=== PATIENT | male | born 1975 | race Caucasian/White ===

== ENCOUNTER 2020-02-26 08:06 | Outpatient (REF) | payer BC, SELFPAY ==
[2020-02-26 11:59] LABS: Alanine Aminotransferase 43 U/L (0-40); Albumin Level 4.5 g/dL (3.5-5.0); Alkaline Phosphatase 78 U/L (39-117); Anion Gap 13 (12-20); Aspartate Amino Transferase 34 U/L (5-37); Bilirubin Total 0.6 mg/dL (0.0-1.0); Blood Urea Nitrogen 24 mg/dL (9-16); Calcium 9.4 mg/dL (8.4-10.2); Carbon Dioxide 28 mmol/L (22-29); Chloride 104 mmol/L (96-108); Cholesterol 158 mg/dL; Estimated Glomerular Filt Rate > 60; Glucose Fasting 167 mg/dL (60-99); HDL Cholesterol 56 mg/dL; LDL Cholesterol Calculated 94 mg/dl; Potassium 4.5 mmol/l (3.3-5.1); Sodium 140 mmol/L (135-145); Total Protein 7.7 g/dL (6.5-8.0); Triglycerides 42 mg/dL
[2020-02-26 12:57] LABS: Creatinine Urine 155.22 mg/dL; Microalbum/Creatinine Ratio Ur 52.8 ug/mg cr
[2020-02-26 13:15] LABS: Estimated Average Glucose 171 mg/dL; Hemoglobin A1c % 7.6 %
== END 2020-02-26 08:07 | disposition home or self-care (01) ==
LOC: HO.MANLDS 08:06
PROVIDERS: PCP Internal Medicine; Visit Provider Internal Medicine
DX: E11.9 Type 2 diabetes mellitus without complications (principal)
CPT/HCPCS: 80053; 80061; 82043; 83036

== ENCOUNTER 2020-06-30 16:09 | Outpatient (REF) | payer BC, SELFPAY ==
[2020-06-30 18:08] LABS: Estimated Average Glucose 183 mg/dL
== END 2020-06-30 16:10 | disposition home or self-care (01) ==
LOC: HO.MANLR 16:09
PROVIDERS: PCP Internal Medicine; Visit Provider Internal Medicine
DX: E11.9 Type 2 diabetes mellitus without complications (principal)
CPT/HCPCS: 36415; 83036

== ENCOUNTER 2020-09-01 07:49 | Outpatient (REF) | payer BC, SELFPAY ==
[2020-09-01 12:18] LABS: Alanine Aminotransferase 28 U/L (0-40); Albumin Level 4.5 g/dL (3.5-5.0); Alkaline Phosphatase 73 U/L (39-117); Anion Gap 13 (12-20); Aspartate Amino Transferase 21 U/L (5-37); Bilirubin Total 0.6 mg/dL (0.0-1.0); Blood Urea Nitrogen 21 mg/dL (9-16); Calcium 9.8 mg/dL (8.4-10.2); Carbon Dioxide 30 mmol/L (22-29); Chloride 103 mmol/L (96-108); Cholesterol 150 mg/dL; Estimated Glomerular Filt Rate > 60; Glucose Fasting 107 mg/dL (60-99); HDL Cholesterol 57 mg/dL; LDL Cholesterol Calculated 84 mg/dl; Potassium 4.3 mmol/L (3.3-5.1); Sodium 142 mmol/L (135-145); Total Protein 7.5 g/dL (6.5-8.0); Triglycerides 46 mg/dL
[2020-09-01 12:43] LABS: Creatinine Urine 136.79 mg/dL; Microalbum/Creatinine Ratio Ur 16.8 ug/mg cr
[2020-09-01 12:57] LABS: Estimated Average Glucose 143 mg/dL; Hemoglobin A1c % 6.6 %
== END 2020-09-01 07:50 | disposition home or self-care (01) ==
LOC: HO.MANLDS 07:49
PROVIDERS: PCP Internal Medicine; Visit Provider Internal Medicine
DX: E11.9 Type 2 diabetes mellitus without complications (principal)
CPT/HCPCS: 36415; 80053; 80061; 82043; 83036

== ENCOUNTER 2020-12-24 14:21 | Outpatient (REF) | payer BC, SELFPAY ==
[2020-12-24 18:18] LABS: Estimated Average Glucose 140 mg/dL; Hemoglobin A1c % 6.5 %
== END 2020-12-24 14:22 | disposition home or self-care (01) ==
LOC: HO.MANLDS 14:21
PROVIDERS: PCP Internal Medicine; Visit Provider Internal Medicine
DX: E11.9 Type 2 diabetes mellitus without complications (principal)
CPT/HCPCS: 36415; 83036

== ENCOUNTER 2021-03-24 09:02 | Outpatient (REF) | payer BC, SELFPAY ==
[2021-03-24 11:16] LABS: Estimated Average Glucose 146 mg/dL; Hemoglobin A1c % 6.7 %
== END 2021-03-24 09:03 | disposition home or self-care (01) ==
LOC: HO.MANLDS 09:02
PROVIDERS: PCP Internal Medicine; Visit Provider Internal Medicine
DX: E11.9 Type 2 diabetes mellitus without complications (principal)
CPT/HCPCS: 36415; 83036

== ENCOUNTER 2021-06-19 08:03 | Outpatient (REF) | payer BC, SELFPAY ==
[2021-06-19 11:25] LABS: Alanine Aminotransferase 41 U/L (0-40); Albumin Level 4.6 g/dL (3.5-5.0); Alkaline Phosphatase 80 U/L (39-117); Anion Gap 12 (12-20); Aspartate Amino Transferase 29 U/L (5-37); Bilirubin Total 0.8 mg/dL (0.0-1.0); Blood Urea Nitrogen 24 mg/dL (9-16); Calcium 9.9 mg/dL (8.4-10.2); Carbon Dioxide 29 mmol/L (22-29); Chloride 101 mmol/L (96-108); Cholesterol 172 mg/dL; Estimated Glomerular Filt Rate > 60; Glucose Fasting 194 mg/dL (60-99); HDL Cholesterol 62 mg/dL; LDL Cholesterol Calculated 97 mg/dl; Potassium 4.4 mmol/L (3.3-5.1); Sodium 138 mmol/L (135-145); Total Protein 7.8 g/dL (6.5-8.0); Triglycerides 65 mg/dL
[2021-06-19 11:27] LABS: Estimated Average Glucose 192 mg/dL; Hemoglobin A1c % 8.3 %
[2021-06-19 11:29] LABS: Creatinine Urine 116.03 mg/dL; Microalbum/Creatinine Ratio Ur 78.4 ug/mg cr
== END 2021-06-19 08:04 | disposition home or self-care (01) ==
LOC: HO.MANLDS 08:03
PROVIDERS: PCP Internal Medicine; Visit Provider Internal Medicine
DX: E11.9 Type 2 diabetes mellitus without complications (principal)
CPT/HCPCS: 36415; 80053; 80061; 82043; 83036

== ENCOUNTER 2021-10-12 11:32 | Outpatient (REF) | payer BC, SELFPAY ==
[2021-10-12 14:52] LABS: Alanine Aminotransferase 41 U/L (0-40); Albumin Level 4.6 g/dL (3.5-5.0); Alkaline Phosphatase 94 U/L (39-117); Anion Gap 14 (12-20); Aspartate Amino Transferase 31 U/L (5-37); Bilirubin Total 0.6 mg/dL (0.0-1.0); Blood Urea Nitrogen 18 mg/dL (9-16); Calcium 9.7 mg/dL (8.4-10.2); Carbon Dioxide 28 mmol/L (22-29); Chloride 101 mmol/L (96-108); Cholesterol 161 mg/dL; Estimated Glomerular Filt Rate > 60; Glucose Random 209 mg/dL (60-115); HDL Cholesterol 64 mg/dL; LDL Cholesterol Calculated 81 mg/dl; Potassium 4.4 mmol/L (3.3-5.1); Sodium 139 mmol/L (135-145); Total Protein 7.9 g/dL (6.5-8.0); Triglycerides 81 mg/dL
== END 2021-10-12 11:33 | disposition home or self-care (01) ==
LOC: HO.MANLDS 11:32
PROVIDERS: Visit Provider Internal Medicine
DX: E11.9 Type 2 diabetes mellitus without complications (principal)
CPT/HCPCS: 36415; 80053; 80061

== ENCOUNTER 2021-12-15 12:15 | Outpatient (REF) | payer BC, SELFPAY ==
[2021-12-15 14:31] LABS: Estimated Average Glucose 217 mg/dL; Hemoglobin A1c % 9.2 %
[2021-12-15 14:54] LABS: Alanine Aminotransferase 59 U/L (0-40); Albumin Level 4.6 g/dL (3.5-5.0); Alkaline Phosphatase 87 U/L (39-117); Anion Gap 18 (12-20); Aspartate Amino Transferase 42 U/L (5-37); Bilirubin Total 0.8 mg/dL (0.0-1.0); Blood Urea Nitrogen 16 mg/dL (9-16); Calcium 10.1 mg/dL (8.4-10.2); Carbon Dioxide 28 mmol/L (22-29); Chloride 101 mmol/L (96-108); Estimated Glomerular Filt Rate > 60; Glucose Random 190 mg/dL (60-115); Potassium 4.7 mmol/L (3.3-5.1); Sodium 142 mmol/L (135-145); Total Protein 7.7 g/dL (6.5-8.0)
== END 2021-12-15 12:16 | disposition home or self-care (01) ==
LOC: HO.MANLDS 12:15
PROVIDERS: Visit Provider Internal Medicine
DX: E11.9 Type 2 diabetes mellitus without complications (principal)
CPT/HCPCS: 36415; 80053; 83036

== ENCOUNTER 2022-05-15 08:00 | Outpatient (REF) | payer BC, SELFPAY ==
[2022-05-15 08:51] LABS: Estimated Average Glucose 263 mg/dL; Hemoglobin A1c % 10.8 %
[2022-05-15 08:52] LABS: Alanine Aminotransferase 52 U/L (0-40); Albumin Level 4.3 g/dL (3.5-5.0); Alkaline Phosphatase 134 U/L (39-117); Anion Gap 11 (12-20); Aspartate Amino Transferase 33 U/L (5-37); Bilirubin Total 0.7 mg/dL (0.0-1.0); Blood Urea Nitrogen 14 mg/dL (9-16); Calcium 9.5 mg/dL (8.4-10.2); Carbon Dioxide 27 mmol/L (22-29); Chloride 103 mmol/L (96-108); Cholesterol 162 mg/dL; Estimated Glomerular Filt Rate > 60; Glucose Random 329 mg/dL (60-115); HDL Cholesterol 50 mg/dL; LDL Cholesterol Calculated 97 mg/dl; Potassium 4.1 mmol/L (3.3-5.1); Sodium 137 mmol/L (135-145); Total Protein 7.3 g/dL (6.5-8.0); Triglycerides 78 mg/dL
[2022-05-15 09:42] LABS: Microalbum/Creatinine Ratio Ur 93.4 ug/mg cr
== END 2022-05-15 08:01 | disposition home or self-care (01) ==
LOC: HO.LAB 08:00
PROVIDERS: PCP Internal Medicine; Visit Provider Internal Medicine
DX: E11.9 Type 2 diabetes mellitus without complications (principal)
CPT/HCPCS: 36415; 80053; 80061; 82043; 83036

== ENCOUNTER 2022-10-12 08:30 | Outpatient (REF) | payer BC, SELFPAY ==
[2022-10-12 11:41] LABS: Estimated Average Glucose 157 mg/dL; Hemoglobin A1c % 7.1 %
== END 2022-10-12 08:31 | disposition home or self-care (01) ==
LOC: HO.MANLDS 08:30
PROVIDERS: Visit Provider Internal Medicine
DX: E11.9 Type 2 diabetes mellitus without complications (principal)
CPT/HCPCS: 36415; 83036

== ENCOUNTER 2022-12-28 13:40 | Outpatient (REF) | payer OTHER, SELFPAY ==
[2022-12-28 14:30] LABS: Alanine Aminotransferase 34 U/L (0-40); Albumin Level 4.7 g/dL (3.5-5.0); Alkaline Phosphatase 79 U/L (39-117); Aspartate Amino Transferase 26 U/L (5-37); Bilirubin Direct 0.4 mg/dL (0.0-0.5); Bilirubin Total 0.9 mg/dL (0.0-1.0); Total Protein 8.2 g/dL (6.5-8.0)
== END 2022-12-28 13:41 | disposition home or self-care (01) ==
LOC: HO.LAB 13:40
PROVIDERS: PCP Internal Medicine; Visit Provider Internal Medicine
DX: R79.89 Other specified abnormal findings of blood chemistry (principal)
CPT/HCPCS: 36415; 80076

== ENCOUNTER 2023-01-12 08:24 | Outpatient (REF) | payer OTHER, BC, SELFPAY ==
--- NOTE | ~2023-01-12 | US_ITS ---
EXAMINATION: US ABDOMEN COMPLETE CLINICAL INFORMATION: Elevated LFTs. COMPARISON: None available. TECHNIQUE: Real-time imaging of the abdominal viscera. Technically limited study secondary to body habitus. FINDINGS: PANCREAS: Visualized portions of the pancreas are unremarkable. The pancreatic tail is obscured by bowel gas. ABDOMINAL AORTA: The proximal, mid, and distal segments are normal in caliber. INFERIOR VENA CAVA: Visualized IVC is normal in caliber however portions are obscured by bowel gas. LIVER: Technically limited exam and the left lobe of the liver was not seen due to body habitus. The liver contour is normal. Increased hepatic echogenicity which can be seen in the setting of hepatic steatosis or underlying liver disease. No focal hepatic lesion. There is no intrahepatic biliary duct dilatation seen. GALLBLADDER: Normal. The gallbladder is physiologically distended without evidence of stones, sludge, polyps, wall thickening or pericholecystic fluid. COMMON BILE DUCT: Not identified sonographically. RIGHT KIDNEY: Normal. No hydronephrosis. No renal calculi or focal parenchymal lesions. The kidney measures 12.5 cm in maximum dimension. LEFT KIDNEY: Normal. No hydronephrosis. No renal calculi or focal parenchymal lesions. The kidney measures 12.0 cm in maximum dimension. SPLEEN: Normal. The spleen measures 12.2 cm in maximum dimension. FREE FLUID: None. US/US abdomen complete IMPRESSION: 1. Technically limited exam and the left lobe of the liver was not seen. Increased hepatic echogenicity which can be seen in the setting of hepatic steatosis or underlying liver disease. 2. Common bile duct and portions of the IVC were obscured by bowel gas.
== END 2023-01-12 08:25 | disposition home or self-care (01) ==
LOC: HO.US 08:24
PROVIDERS: PCP Internal Medicine; Visit Provider Internal Medicine
DX: R79.89 Other specified abnormal findings of blood chemistry (principal)
CPT/HCPCS: 76700

== ENCOUNTER 2023-02-07 08:09 | Outpatient (REF) | payer BC, SELFPAY ==
[2023-02-07 14:04] LABS: Estimated Average Glucose 160 mg/dL; Hemoglobin A1c % 7.2 % (<6.0)
== END 2023-02-07 08:10 | disposition home or self-care (01) ==
LOC: HO.MANLDS 08:09
PROVIDERS: Visit Provider Internal Medicine
DX: E11.9 Type 2 diabetes mellitus without complications (principal)
CPT/HCPCS: 36415; 83036

== ENCOUNTER 2023-04-01 09:29 | Day surgery (SDC) | payer BC, SELFPAY ==
[2023-03-30 16:33] VITALS: BMI 29.3
--- NOTE | 2023-03-31 10:35 | HO.ANESPROP2 ---
Documented by User: Georgia Fletcher NP 03/31/23 10:37 HPI - Anesthesia Eval Consult details Narrative: 47yo M for Colonoscopy Anesthesia Pre-Procedure Meds Is the patient on any of the following meds?: Any other SGL-1 drugs or drugs that delay gastric emptying (Tirzepatide) PMFSH Past Medical History Medical History Elevated cholesterol Elevated liver enzymes Glaucoma Diabetes Surgical History Surgical History History of back surgery Social History Social History Patient Tobacco Use Status: Never used Tobacco Use of substances other than those prescribed or required for medical reasons: No Are you DNR?: No Advance Directives: No Advance Directives Information Provided: Yes Meds Allergies Allergy/AdvReac Type Severity Reaction Status Date / Time No Known Allergies Allergy Verified 04/01/23 10:49 Home Medications Medication Instructions Recorded Confirmed Last Taken Type atorvastatin 20 mg tablet 20 mg PO DAILY 03/30/23 04/01/23 Unknown History empagliflozin 10 mg tablet 10 mg PO DAILY 03/30/23 04/01/23 03/30/23 History (Jardiance) latanoprost 0.005 % eye drops 1 drp ophthalmic (eye) BEDTIME 03/30/23 04/01/23 Unknown History metformin 1,000 mg tablet 1,000 mg PO BID 03/30/23 04/01/23 03/30/23 History tirzepatide 5 mg/0.5 mL 5 mg subcut QWEEK 03/30/23 04/01/23 03/25/23 History subcutaneous pen injector (Mounjaro) Exam Height,Weight and Vital Signs: Height 5 ft 8 in Weight 87.543 kg Assessment and Plan Assessment Anesthesia Assessment: Chart Reviewed Documented by User: Elda Brice MD 04/01/23 12:13 HPI - Anesthesia Eval Anesthesia Pre-Procedure Meds If Yes to any meds - educate patient: Pt education - increased risk of aspiration PMFSH Past Medical History Medical History Elevated cholesterol Elevated liver enzymes Glaucoma Diabetes Family History Family history of problems with anesthesia: No Surgical History Surgical History History of back surgery History of Problems with Anesthesia: No Social History Social History Patient Tobacco Use Status: Never used Tobacco Use of substances other than those prescribed or required for medical reasons: No Are you DNR?: No Advance Directives: No Advance Directives Information Provided: Yes Meds Allergies Allergy/AdvReac Type Severity Reaction Status Date / Time No Known Allergies Allergy Verified 04/01/23 10:49 Home Medications Medication Instructions Recorded Confirmed Last Taken Type atorvastatin 20 mg tablet 20 mg PO DAILY 03/30/23 04/01/23 Unknown History empagliflozin 10 mg tablet 10 mg PO DAILY 03/30/23 04/01/23 03/30/23 History (Jardiance) latanoprost 0.005 % eye drops 1 drp ophthalmic (eye) BEDTIME 03/30/23 04/01/23 Unknown History metformin 1,000 mg tablet 1,000 mg PO BID 03/30/23 04/01/23 03/30/23 History tirzepatide 5 mg/0.5 mL 5 mg subcut QWEEK 03/30/23 04/01/23 03/25/23 History subcutaneous pen injector (Mounjaro) Exam Height,Weight and Vital Signs: Height 5 ft 8 in Weight 87.543 kg Vital Signs Temp Pulse Resp BP Pulse Ox O2 Del Method 04/01/23 10:50 98.3 F 106 H 16 146/96 H 100 Room Air Pertinent Lab Results Pertinent Lab Results: Lab Results 04/01/23 Range/Units 10:57 POC Glucose 137 H (60-115) mg/dL Airway Mallampati Class: III TM Dist: >3cm Neck ROM: Full Loose/Missing/Broken Teeth: No (Denies broken, loose, missing teeth) Heart: RRR Lungs: CTAB Assessment and Plan Assessment Anesthesia Assessment: Anesthesia Plan Discussed Final Anesthetic Review Family History of Problems with Anesthesia: No History of Problems with Anesthesia: No NPO: Yes ASA Class: II Final Preanesthetic Review: No Changes in Pt Med Stat, Meds/Allgs Chart Reviewed, Consent Obtained/Reviewed and Anes Risks/Benef Reviewed Patient Risk: Low Procedure Risk: Low Assessment/Block/Sedation in SS: Assess/Block/Sedation-SS Anesthetic Plan Anesthetic Plan: MAC: Disposition: Standard PACU
[2023-04-01 10:50] VITALS: BP 146/96; PULSE 106; RESP 16; TEMP 36.8; O2SAT 100
[2023-04-01 10:54] VITALS: BMI 28.6
[2023-04-01] MEDS: Sodium Phosphate,Mono-Dibasic 133 ML ENEMA PR (11:05)
[2023-04-01 11:08] LABS: Glucose, Whole Blood 137 mg/dL (60-115)
[2023-04-01] MEDS: Lactated Ringers 1,000 ML 100 ML IVCONT (11:46)
[2023-04-01 12:42] VITALS: BP 105/58; PULSE 105; RESP 16; TEMP 36.1; O2SAT 97
--- NOTE | 2023-04-01 12:43 | PM.OP ---
Brief Operative Note Date of Service: 04/01/23 Pre-op diagnosis: Screening Post-op diagnosis: other (Diverticulosis) Procedure: Colonoscopy to the cecum and TI Surgeon: Francis Meadows MD Anesthesia: MAC Was an Charge Accounts Audit Clerk used for this Procedure?: No Estimated blood loss (mL): 0 Pathology: none sent Condition: stable Disposition: PACU
[2023-04-01 13:03] VITALS: BP 113/58; PULSE 108; RESP 17; TEMP 36.1; O2SAT 97
--- NOTE | 2023-04-01 19:38 | OP_ITS ---
DATE OF SERVICE: 04/01/2023 SURGEON: Francis Meadows MD INDICATIONS: The patient presents for evaluation of colorectal cancer screening and family history of colon cancer. Full consent has been obtained from him for this, including risks of bleeding and perforation. PREOPERATIVE DIAGNOSIS: Colorectal cancer screening and family history of colon cancer. POSTOPERATIVE DIAGNOSIS: PROCEDURE PERFORMED: Colonoscopy to the cecum and terminal ileum. ESTIMATED BLOOD LOSS: COMPLICATIONS: ANESTHESIA: Monitored anesthesia care. ASSISTANTS: SPECIMENS: POSTOPERATIVE DIAGNOSES: Colorectal cancer screening and family history of colon cancer, mild sigmoid diverticulosis, small internal hemorrhoids. DESCRIPTION OF PROCEDURE: The patient was placed in the left lateral decubitus position. The digital rectal exam revealed no abnormalities. The Olympus video pediatric colonoscope was entered into the rectum and advanced easily to the cecum. Once in the cecum, I did identify normal-appearing cecal pouch with appendiceal orifice and a normal-appearing ileocecal valve. The terminal ileum was cannulated and appeared normal. The scope was withdrawn back in the colon. The entire cecum and ileocecal valve appeared normal. The scope was slowly withdrawn assessing all mucosal surfaces carefully. Preparation was excellent. I did not visualize any sign of polyps, colitis, nor angiodysplasia. There was an occasional diverticulum noted in the sigmoid colon. In the rectum, scope was retroflexed visualizing internal hemorrhoids, but no other pathology. The rectal mucosa appeared normal. The scope was straightened and withdrawn from the patient. He tolerated the procedure well and was returned to the recovery area in stable condition. IMPRESSION: 1. Occasional sigmoid diverticulosis. 2. Small internal hemorrhoids. PLAN: Given his family history of a grandmother having had colon cancer in her 50s, I would recommend a repeat colonoscopy in 5 years for further screening. He will otherwise see me on a p.r.n. basis. MD NIKKI Zeng/RONIT / [id number]
== END 2023-04-01 13:30 | disposition home or self-care (01) ==
PROVIDERS: PCP Internal Medicine; Visit Provider Internal Medicine
PROC: 0DJD8ZZ Inspection of Lower Intestinal Tract, Via Natural or Artificial Opening Endoscopic (ICD-10-PCS; CPT 45378; principal; 2023-04-01 11:10)
DX: Z12.11 Encounter for screening for malignant neoplasm of colon (principal); R79.89 Other specified abnormal findings of blood chemistry; K57.30 Diverticulosis of large intestine without perforation or abscess without bleeding; K64.8 Other hemorrhoids; Z80.0 Family history of malignant neoplasm of digestive organs; E78.00 Pure hypercholesterolemia, unspecified; E11.9 Type 2 diabetes mellitus without complications; H40.9 Unspecified glaucoma; Z79.84 Long term (current) use of oral hypoglycemic drugs; Z79.85 Long-term (current) use of injectable non-insulin antidiabetic drugs; Z79.899 Other long term (current) drug therapy
CPT/HCPCS: 45378; 82947; J2704

== ENCOUNTER 2023-05-11 13:49 | Outpatient (REF) | payer BC, SELFPAY ==
[2023-05-11 15:51] LABS: Estimated Average Glucose 160 mg/dL; Hemoglobin A1c % 7.2 % (<6.0)
== END 2023-05-11 13:50 | disposition home or self-care (01) ==
LOC: HO.LAB 13:49
PROVIDERS: PCP Internal Medicine; Visit Provider Internal Medicine
DX: E11.9 Type 2 diabetes mellitus without complications (principal)
CPT/HCPCS: 36415; 83036

== ENCOUNTER 2023-09-13 11:20 | Outpatient (REF) | payer BC, SELFPAY ==
[2023-09-13 13:59] LABS: Estimated Average Glucose 171 mg/dL; Hemoglobin A1c % 7.6 % (<6.0)
== END 2023-09-13 11:21 | disposition home or self-care (01) ==
LOC: HO.MANLDS 11:20
PROVIDERS: Visit Provider Internal Medicine
DX: E11.9 Type 2 diabetes mellitus without complications (principal)
CPT/HCPCS: 36415; 83036

== ENCOUNTER 2023-12-09 15:40 | Outpatient (REF) | payer BC, SELFPAY ==
[2023-12-09 16:34] LABS: Estimated Average Glucose 157 mg/dL; Hemoglobin A1c % 7.1 % (<6.0)
== END 2023-12-09 15:41 | disposition home or self-care (01) ==
LOC: HO.LAB 15:40
PROVIDERS: PCP Internal Medicine; Visit Provider Internal Medicine
DX: E11.9 Type 2 diabetes mellitus without complications (principal)
CPT/HCPCS: 36415; 83036

== ENCOUNTER 2024-05-14 16:54 | Outpatient (REF) | payer BC, SELFPAY ==
[2024-05-14 17:20] LABS: MANUAL DIFF FLAG NO
[2024-05-14 17:58] LABS: Basophils Percent Auto 0.4 % (0-2); Eosinophils Absolute Auto 0.1 X10*3/uL (0.0-0.4); Eosinophils Percent Auto 1.2 % (0-4); Hematocrit 47.4 % (42.0-52.0); Hemoglobin 16.3 g/dl (14.0-18.0); Imm Gran Abs Auto 0.02 X10*3/uL (0.00-0.03); Imm Gran Pct Auto 0.3 % (0.0-0.4); Lymphocytes Percent Auto 26.5 % (20-40); Mean Corpuscular HGB Conc 34.4 g/dl (31.0-36.0); Mean Corpuscular Hemoglobin 30.1 pg (27.0-33.0); Mean Corpuscular Volume 87.5 fL (80.0-98.0); Mean Platelet Volume 9.4 fL (9.4-12.4); Monocytes Absolute Auto 0.8 X10*3/uL (0.1-1.2); Monocytes Percent Auto 10.6 % (2-11); Neutrophils Absolute Auto 4.6 x10*3/uL (2.0-8.3); Platelet Count 282 X10*3/uL (160-400); Red Blood Count 5.42 X10*6/uL (4.60-5.80); White Blood Count 7.5 X10*3/uL (4.8-10.8)
[2024-05-14 18:25] LABS: Alanine Aminotransferase 36 U/L (0-40); Albumin Level 4.8 g/dL (3.5-5.0); Alkaline Phosphatase 93 U/L (39-117); Anion Gap 13 (12-20); Aspartate Amino Transferase 28 U/L (5-37); Bilirubin Total 0.7 mg/dL (0.0-1.0); Blood Urea Nitrogen 24 mg/dL (9-16); Calcium 10.3 mg/dL (8.4-10.2); Carbon Dioxide 24 mmol/L (22-29); Chloride 105 mmol/L (96-108); Cholesterol 126 mg/dL (<200); Estimated Glomerular Filt Rate > 60; Glucose Random 140 mg/dL (60-115); HDL Cholesterol 56 mg/dL (>40); LDL Cholesterol Calculated 52 mg/dL (<100); Potassium 4.1 mmol/L (3.3-5.1); Sodium 138 mmol/L (135-145); Total Protein 8.5 g/dL (6.5-8.0); Triglycerides 92 mg/dL (<150)
[2024-05-14 18:26] LABS: Creatinine Urine 70.98 mg/dL; Microalbum/Creatinine Ratio Ur 222.5 ug/mg cr (<30)
--- OUTSIDE RECORDS SUMMARY | 2024-05-14 20:05 | XMS_ITS | Encounter Summary ---
Author Name [facility] [place] Organization [facility] [place] Address [address] [place] [address] Care Team Providers Care Avionics Electronics Technician Name Role Phone SLIM HUI Primary Care Provider Unavailabl e Insurance Providers: All historical and current Section Date Range: From patient's date of to the date document was created. This section includes the names of all active insurance providers for the patient. Insurance Provider Type of Coverage Plan Name Start of Policy Coverage End of Policy Coverage Group Number Member ID Insurance Provider's Telephone Number Policy Turner's Name Patient's Relationship to Policy Turner BCBS MA FEP PREFERRED PROVIDER ORGANIZAT ION (PPO) STAND KARMA FAMIL Y Apr 20, 2009 [id number] MAGGIE SHAFFER PATIENT CAREMARK-F EP BCBS PRESCRIPT ION FEP CAREM ARK Apr 18, 2010 [id number] MAGGIE SHAFFER PATIENT Selected Encounter This section includes the information on record at [place] for the Encounter. Date/Time Encounter Type Encounter Description Reason Pro vider Source IHE Encounter Template Text not used by VA
--- OUTSIDE RECORDS SUMMARY | 2024-05-14 20:05 | XMS_ITS | Encounter Summary ---
Author Name [facility] [place] [facility] [place] Address [address] [place] [id number] Care Team Providers Care Energy Trading Analyst Name Role Phone HERBERT HUIA Primary Care Provider Unavailabl e Insurance Providers: [...] KARMA FAMIL Y Apr 20, 2009 [id number] MAGGIE SHAFFER PATIENT CAREMARK-F EP BCBS PRESCRIPT ION FEP CAREM ARK Apr 18, 2010 [id number] MAGGIE SHAFFER PATIENT Selected Encounter This section includes the information on record at [place] for the Encounter. Date/Time Encounter Type Encounter Description Reason Provider Source Dec 30, 2023 08:00 AM INTRM OPH EXAM EST PATIENT OPTOMETRY ICD-10-CM H40.1131 Primary open-angle glaucoma, bilateral, mild stage GILBERT TURK IHE Encounter Template Text not used by VA Assessments - Encounter Diagnoses This section includes the primary and secondary diagnoses documented for the Encounter. Date/Time Primary/Secondary Diagnosis Diagnosis Name Provider Source Jan 02, 2024 09:31 AM PRIMARY Primary open-angle glaucoma, bilateral, mild stage OSHINSKIE,MARSHA BERNAD [facility] Jan 02, 2024 09:31 AM SECONDARY Myopia, bilateral OSHINSKIE,MARSHA NARD [facility] [place] [facility] Jan 02, 2024 09:31 AM SECONDARY Presbyopia OSAKHILNSKIE,MARSHA BERNAD [facility] Jan 02, 2024 09:31 AM SECONDARY Type 2 diabetes mellitus without complications OSLORAKIE,MARSHA BERNAD [facility] Plan of Treatment: Future Appointments (+ 6 months) and Future Tests (+/- 45 days) The Plan of Treatment section includes future care activities for the patient [facility] [place] [facility] This section includes future appointments and future orders which are active, pending or scheduled. Future Appointments This section includes appointments that were scheduled to occur 6 months from the date of the Encounter, up to a maximum of 20 appointments. The data comes from all [place] treatment facilities. Appointment Date/Time Appointment Type Appointme nt Facility Name Feb 17, 2024 09:00 AM [facility] Feb 17, 2024 10:00 AM [facility]ULATORY MEDICINE [facility] Social History: Smoking Status (Most current) and Tobacco Use (All prior to encounter date) This section includes the most current, and the historical, smoking and tobacco- related health factors from the VA facility where the Encounter took place. Current Smoking Status This section includes the most current smoking, or tobacco-related health factor, from the [place] facility where the Encounter took place. Date/Time Current Smoking Status Comment Facil ity Mar 30, 2021 09:32 AM VA-TOBACCO NEVER USED [facility] Tobacco Use History This section includes a history of the smoking, or tobacco-related health factors, that were collected on or before the date of the Encounter. The data comes from the [place] facility where the Encounter took place. Date/Time Smoking Status/Tobacco Use Comment F acility Jan 03, 2020 12:08 PM VA-TOBACCO NEVER USED [facility] Encounter Notes: All associated encounter notes This section contains the clinical notes associated to the Encounter. Date/Time Encounter Note(s) Provider Source Dec 30, 2023 08:57 AM OPTOMETRY NOTE: LOCAL TITLE: OPTOMETRY NOTE STANDARD TITLE: OPTOMETRY NOTE DATE OF NOTE: DEC 30, 2023@08:57 ENTRY DATE: DEC 30, 2023@08:58:03 AUTHOR: GEENA TURK COSIGNER: URGENCY: STATUS: COMPLETED 48 yo MALE with POAG OU back for IOP check taking latanoprost but not sure if he got the drop in both eyes last night. May have missed one eye, not sure which one He still sees Dr Molina for glaucoma followup and states his IOPs were equal at his last visit there also would like new glasses since current ones scratched takes glasses off to read but wants to try PALs He is also diabetic but no hx of retinopathy. Was dilated in Mar 2023. denies eye pain, redness, irritation, flashes, floaters, new JOHNSON s/p LASIK OU Active Problem Colonoscopy Screening R69. 09/26/2023 SLIM HUI Primary Care Physician R69. 02/05/2020 SLIM HUI History of hypertension R69. 02/05/2020 SLIM HUI Prolapsed lumbar intervertebral dis 01/09/2020 SLIM HUI Anxiety ([facility] [id number]) F41.9 01/09/2020 SLIM HUI Diabetes Mellitus Type 2 ([facility] [address]774 01/04/2020 SLIM HUI Glaucoma H40.89 02/05/2020 SLIM HUI Active Outpatient Medications (including Supplies): Pending Outpatient Medications Status 1) LATANOPROST 0.005% OPH SOLN INSTILL 1 DROP INTO EACH PENDING EYE AT BEDTIME Active Non-VA Medications Status 1) Non-VA ATORVASTATIN CALCIUM 40MG TAB 20MG BY MOUTH ACTIVE ONCE DAILY 2) Non-VA EMPAGLIFLOZIN 10MG TAB 10MG BY MOUTH ONCE ACTIVE DAILY 3) Non-VA METFORMIN HCL 1000MG TAB 1000MG BY MOUTH TWICE ACTIVE DAILY 4) Non-VA TIRZEPATIDE INJ,SOLN 5 MG/0.5 ML ACTIVE SUBCUTANEOUSLY WEEKLY 5 Total Medications allergies: Patient has answered NKA HEMOGLOBIN A1C TREND No data available VA with OD 20/20 OS 20/20 current Rx OD -1.00 ds OS -1.25 ds refraction OD -1.00-0.72z628 20/20 OS -1.25 ds 20/20 +1.75 add PAL pupils: PERRL - RAPD OU slit lamp cornea clear OU no K spindle OU AC D and Q OU lids/lashes long lashes OU iris brown, flat OU no tids OU conj bulbar white OU palpebral clear OU angles gr 4 IOP OD 21, 21 OS 14 time:8:15 am Side effects of dilation medications discussed, patient stated clear understanding, and patient consented to dilation. Dilation warning given re: driving while dilated, blurred vision for several hours dilated 1% tropicamide( x )only lens clear OU no PXF OU vitreous clear OU c/d OD 0.6H/0.7 V shallow OS 0.45 no disc hemes OU disc color pink OU disc margins distinct ou macula clear OU no DME or diabetic retinopathy OU vessels 2/3 A 1) primary open angle glaucoma OU, mild with increased IOP OD 2) DM without retinopathy OU 3) myopia OU and presbyopia P 1) Pt ed on drop instillation. Recheck IOP in one month 2) get annual DFE 3) order PALs. Consider sunglasses after he adapts to PALs Glaucoma: Patient was educated regarding glaucoma/glaucoma suspect as well as the natural history of this diagnosis including prognosis. Stress importance of compliance and persistency with glaucoma medication when prescribed, timely follow up as well as the role of ancillary testing. Exclusion criteria for ancillary testing include significantly reduced acuity, mental status changes affecting the patient's ability to attend to the test or other physical limitations that would prohibit the patient's ability to participate in testing. Diabetes: Patient was educated regarding diabetes and related ocular complications including retinopathy and cataract formation as well as other related systemic complications. The importance of good blood sugar control, blood sugar testing as recommended by their PCP and the importance of timely follow up were all emphasized. med reconciliation: All Ophthalmic medications were reconciled ( x ) ( ) pt is not taking any ophthalmic medications ( ) the following ophthalmic meds were discontinued: pt deferred receiving list of medications Medication Reconciliation: Outpatient: Has the patient been taking medications as documented in the EMLR? YES: The patient has been taking medications as documented in the EMLR. Essential Medication List for Review used to complete this medication reconciliation. INCLUDED IN THIS LIST: Alphabetical list of active outpatient prescriptions dispensed from this VA (local) and dispensed from another [place] or [facility] facility (remote) as well as inpatient orders (local, pending and active), local clinic medications, locally documented non-VA medications, and local prescriptions that have or been discontinued in the past 90 days. - All changes in medications, including all non-VA/Herbal/OTC medications were entered into CPRS. - If there were any medications the patient should no longer take, they were discontinued. - The patient/caregiver was instructed to update this list, discard old lists, and take this list to the next appointment, whether with a VA or non-VA provider. Medication List: JLV Link Data on this list may not be complete. Please check JLAxcient. Allergies/ADRs (Tool #5) FACILITY ALLERGY/ADR -------- No Remote Allergy/ADR Data available for this patient [facility] [place] [facility] No Known Allergies Med. Reconciliation (Tool #1) INCLUDED IN THIS LIST: Alphabetical list of active outpatient prescriptions dispensed from this VA (local) and dispensed from another [place] or [facility] facility (remote) as well as inpatient orders (local pending and active), local clinic medications, locally documented non-VA medications, and local prescriptions that have or been discontinued in the past 90 days. Non-VA Meds Last Documented On: Jul 15, 2023 NOTE The display of VA prescriptions dispensed from another [place] or [facility] facility (remote) is limited to active outpatient prescription entries matched to National Drug File at the originating site and may not include some items such as investigational drugs, compounds, etc. NOT INCLUDED IN THIS LIST: Medications self-entered by the patient into personal health records (i.e. [employer]) are NOT included in this list. Non-VA medications documented outside this [place], remote inpatient orders (regardless of status) and remote clinic medications are NOT included in this list. The patient and provider must always discuss medications the patient is taking, regardless of where the medication was dispensed or obtained. Non-VA ATORVASTATIN CALCIUM 40MG TAB TAKE ONE-HALF TABLET BY MOUTH ONCE DAILY Patient wants to buy from Non-VA pharmacy. Medication prescribed by Non-VA provider. Non-VA EMPAGLIFLOZIN 10MG TAB TAKE ONE TABLET BY MOUTH ONCE DAILY Non-VA medication not recommended by VA provider. Medication prescribed by Non-VA provider. OUTPT LATANOPROST 0.005% OPH SOLN (Status = Discontinued) INSTILL 1 DROP INTO EACH EYE AT BEDTIME TO REDUCE PRESSURE IN THE EYE Rx# [id number] Last Released: Qt/Days Supply: Rx Expiration Date: 07/18/24 Refills Remainin OUTPT LATANOPROST 0.005% OPH SOLN (Status = Pending) INSTILL ONE DROP INTO EACH EYE AT BEDTIME Login Date: 12/30/23 Qty/Days Supply: Refills Ordered: 3 Non-VA METFORMIN HCL 1000MG TAB TAKE ONE TABLET BY MOUTH TWICE DAILY Non-VA medication not recommended by VA provider. Medication prescribed by Non-VA provider. Non-VA TIRZEPATIDE INJ,SOLN INJECT 5 MG/0.5 ML SUBCUTANEOUSLY WEEKLY Patient wants to buy from Non-VA pharmacy. Medication prescribed by Non-VA provider. SUPPLIES PHARMACY TERMS AND POSSIBLE PATIENT ACTIONS INPT = [place] inpatient order IV = [place] intravenous medication OUTPT = [place] outpatient prescription PHARMACY POSSIBLE PATIENT TERMS EXPLANATION ACTIONS -------- ------ ACTIVE A prescription that can be If you have refills, filled at the local [place] pharmacy. you may request a refill of this prescription from your [place] pharmacy. CLINIC A medication you received during If you have questions a visit to a [place] clinic or about this medication emergency department. contact your [place] healthcare team. DISCONTINUED A prescription your provider has Contact your VA stopped. It is no longer healthcare team if you available to be sent to you or need more of this picked up at the [place] pharmacy medication. window. A prescription which is too old Contact your VA to fill. This does not refer to healthcare team if you the expiration date of the need more of this medication in the container. medication. NON-VA A medication that came from If this medication someplace other than a VA information is pharmacy. This may be a incorrect or out of prescription from either the VA date, please tell your or non VA providers that was VA healthcare team. filled outside the VA. Or, it may be an xnmo-aar-pnydxdp (OTC), herbal, dietary supplements or sample medication. ON HOLD An active prescription that will Contact your VA not be filled until pharmacy pharmacy when you need resolves the issue. more of this medication. PARKED An active prescription that will Contact your VA not be filled until the patient pharmacy when you need requests it. this medication. PENDING This prescription order has been If you have been sent to the pharmacy for review instructed to start and is not ready yet. this medication now, contact your VA pharmacy. SUSPENDED An active prescription that is Contact your VA not scheduled to be filled yet. pharmacy if you need You should receive it before this medication now. you run out. /mark/ Geena Turk OD Fee Basis Welding Machine Assembler Signed: 12/30/2023 09:08 GEENA TURK [place] [facility]
--- OUTSIDE RECORDS SUMMARY | 2024-05-14 20:06 | XMS_ITS | Data Portability ---
Author Organization [facility] Service Address [address] [place] [address] Assessment Encounter Date Assessment Date Assessment LastModified by Organization Details LastModified Time 02/08/2023 02/08/2023 [id number] [place] [id number] (SWATCH CLERK) [facility] MUST MEET 2 OUT OF 3 ELEMENTS: PROBLEMS, DATA OR RISK ELEMENT 1: PROBLEMS ADDRESSED 1 OR MORE CHRONIC ILLNESS WITH EXACERBATION OR 2 OR MORE STABLE CHRONIC ILLNESSES OR 1 UNDIAGNOSED NEW PROBLEM OR 1 ACUTE ILLNESS W/SYMPTOMS OR 1 ACUTE COMPLICATED INJURY ELEMENT 2: DATA MUST MEET 1 OF 3 CATEGORIES CATEGORY 1: REVIEW OF PRIOR EXTERNAL NOTES, REVIEW OF RESULTS, ORDERING OF EACH TEST, ASSESSMENT REQUIRING INDEPENDENT HISTORIAN OR CATEGORY 2: INDEPENDENT INTERPRETATION OF TESTS BY ANOTHER PHYSICIAN OR SPECIALIST OR CATEGORY 3: DISCUSSION OF MGT OR TEST INTERPRETATION W/EXTERNAL PHYSICIAN OR SPECIALIST ELEMENT 3: RISK RISK OF COMPLICATIONS AND/OR MORBIDITY OR MORTALITY OF PATIENT MANAGEMENT PROVIDER MUST THOROUGHLY DOCUMENT EACH ELEMENT THAT IS COVERED Not available 02/08/2023 16:39:04 05/13/2023 05/13/2023 [id number] [place] [id number] (SWATCH CLERK) [facility] MUST MEET 2 OUT OF 3 ELEMENTS: PROBLEMS, DATA OR RISK ELEMENT 1: PROBLEMS ADDRESSED 1 OR MORE CHRONIC ILLNESS WITH EXACERBATION OR 2 OR MORE STABLE CHRONIC ILLNESSES OR 1 UNDIAGNOSED NEW PROBLEM OR 1 ACUTE ILLNESS W/SYMPTOMS OR 1 ACUTE COMPLICATED INJURY ELEMENT 2: DATA MUST MEET 1 OF 3 CATEGORIES CATEGORY 1: REVIEW OF PRIOR EXTERNAL NOTES, REVIEW OF RESULTS, ORDERING OF EACH TEST, ASSESSMENT REQUIRING INDEPENDENT HISTORIAN OR CATEGORY 2: INDEPENDENT INTERPRETATION OF TESTS BY ANOTHER PHYSICIAN OR SPECIALIST OR CATEGORY 3: DISCUSSION OF MGT OR TEST INTERPRETATION W/EXTERNAL PHYSICIAN OR SPECIALIST ELEMENT 3: RISK RISK OF COMPLICATIONS AND/OR MORBIDITY OR MORTALITY OF PATIENT MANAGEMENT PROVIDER MUST THOROUGHLY DOCUMENT EACH ELEMENT THAT IS COVERED Not available 05/13/2023 16:31:14 09/16/2023 09/16/2023 [id number] [place] [id number] (SWATCH CLERK) [facility] MODERATE MUST MEET 2 OUT OF 3 ELEMENTS: PROBLEMS, DATA OR RISK ELEMENT 1: PROBLEMS ADDRESSED 1 OR MORE CHRONIC ILLNESS WITH EXACERBATION OR 2 OR MORE STABLE CHRONIC ILLNESSES OR 1 UNDIAGNOSED NEW PROBLEM OR 1 ACUTE ILLNESS W/SYMPTOMS OR 1 ACUTE COMPLICATED INJURY ELEMENT 2: DATA MUST MEET 1 OF 3 CATEGORIES CATEGORY 1: REVIEW OF PRIOR EXTERNAL NOTES, REVIEW OF RESULTS, ORDERING OF EACH TEST, ASSESSMENT REQUIRING INDEPENDENT HISTORIAN OR CATEGORY 2: INDEPENDENT INTERPRETATION OF TESTS BY ANOTHER PHYSICIAN OR SPECIALIST OR CATEGORY 3: DISCUSSION OF MGT OR TEST INTERPRETATION W/EXTERNAL PHYSICIAN OR SPECIALIST ELEMENT 3: RISK RISK OF COMPLICATIONS AND/OR MORBIDITY OR MORTALITY OF PATIENT MANAGEMENT PROVIDER MUST THOROUGHLY DOCUMENT EACH ELEMENT THAT IS COVERED Not available 09/16/2023 15:46:26 12/13/2023 12/13/2023 [id number] [place] [id number] (SWATCH CLERK) : [facility] LOW MUST MEET 2 OF 3 ELEMENTS: PROBLEMS, DATA OR RISK ELEMENT 1: PROBLEMS ADDRESSED (LOW): 2 OR MORE SELF-LIMITED OR MINOR PROBLEMS OR 1 STABLE CHRONIC ILLNESS OR 1 ACUTE UNCOMPLICATED ILLNESS OR INJURY ELEMENT 2: DATA TO BE REVISED AND ANALYZED (LOW) MUST MEET 1 OF 2 CATEGORIES: CATEGORY 1. REVIEW OF PRIOR EXTERNAL NOTES/RESULTS, ORDERING OF TEST(S) CATEGORY 2. ASSESSMENT REQUIRING INDEPENDENT HISTORIAN(S) INCLUDE WHO THE HISTORIAN IS AND RELATION TO PT AND WHY PT IS UNABLE TO GIVE COMPLETE HISTORY ELEMENT 3: RISK (LOW) RISK OF COMPLICATIONS AND/OR MORBIDITY OR MORTALITY OF PATIENT MANAGEMENT PROVIDER MUST THOROUGHLY DOCUMENT ALL OF THE ELEMENTS COVERED Not available 01/30/2024 16:07:30 12/14/2023 12/14/2023 [id number] [place] [id number] (SWATCH CLERK) [facility] MODERATE MUST MEET 2 OUT OF 3 ELEMENTS: PROBLEMS, DATA OR RISK ELEMENT 1: PROBLEMS ADDRESSED 1 OR MORE CHRONIC ILLNESS WITH EXACERBATION OR 2 OR MORE STABLE CHRONIC ILLNESSES OR 1 UNDIAGNOSED NEW PROBLEM OR 1 ACUTE ILLNESS W/SYMPTOMS OR 1 ACUTE COMPLICATED INJURY ELEMENT 2: DATA MUST MEET 1 OF 3 CATEGORIES CATEGORY 1: REVIEW OF PRIOR EXTERNAL NOTES, REVIEW OF RESULTS, ORDERING OF EACH TEST, ASSESSMENT REQUIRING INDEPENDENT HISTORIAN OR CATEGORY 2: INDEPENDENT INTERPRETATION OF TESTS BY ANOTHER PHYSICIAN OR SPECIALIST OR CATEGORY 3: DISCUSSION OF MGT OR TEST INTERPRETATION W/EXTERNAL PHYSICIAN OR SPECIALIST ELEMENT 3: RISK RISK OF COMPLICATIONS AND/OR MORBIDITY OR MORTALITY OF PATIENT MANAGEMENT PROVIDER MUST THOROUGHLY DOCUMENT EACH ELEMENT THAT IS COVERED Not available 12/14/2023 15:07:38 Plan of Treatment Reminders Order Date Submit Date Provider Last Modified By Organization Details Last Modified Time Details Appointments FOLLOW UP 15 2024 11:45A M DR HERRERA Not available Not available Not available Lab CMP, serum or plasma 2023 [facility], [address] [place] [address], [address], 12/13/2023 16:09:19 CBC 2023 024 [facility], [address] [place] [address], [address], 12/13/2023 16:09:19 lipid panel, blood 2023 024 [facility], [address] [place] [address], [address], 12/13/2023 16:09:19 microalbu min, urine 2023 024 [facility], [address] [place] [address], [place], [address], 12/13/2023 16:09:19 Referral None recorded. Procedures None recorded. Surgeries None recorded. Imaging home sleep study 2023 024 [email or web address], [address] [place] [address], [address], 12/21/2023 09:01:51 Medication Orders Mounjaro 7.5 mg/0.5 mL subcutane ous pen injector 2023 024 [facility][id number], [address] [place] [address], [address], 09/16/2023 15:44:48 silver sulfadiaz ine 1 % topical cream 2023 024 [id number], [address] [place], [address], 09/16/2023 15:44:48 Patient TargetsNo targets recorded. Patient Instructions Encounter Date Encounter Id Patient Instructions Last Modified By Organization Details Last Modified Time 12/14/2023 [id number] sleep apnea: car e instructions [email or web address] Not available 12/14/2023 15:09:51 learning about type 2 diabetes Not available 12/14/2023 15:09:51 type 2 diabetes: [email or web address] Not available 12/14/2023 15:09:51 Reason for Referral None Reported. Results Created Date Observation Date Name Description Value Unit Range Abnormal Flag Note LastModifiedBy Organization Detail LastModifiedTime 12/12/19 24 12/12/2023 HbA1c (hemo globi n A1c), blood A1C 7.1 abnormal Not Available [facility] (Medical Records) [address] [place], [address], 12/12/2023 11:04:10 01/14/20 23 01/12/2023 US, abdom en No observ ation record ed. [facility] (Medical Records) [address] [place], [address], 01/14/2023 06:40:20 Result Notes None recorded. Problems Name Problem SNOMED Code Status Onset Date Resolution Date Notes Provider Name and Address Organization Details Recorded Time Type 2 diabetes mellitus 27124455 Completed 201709/01/2018 Cornel Herrera DO [address] [place] [address], [phone], [facility] 0 09:54:21 Type 2 diabetes mellitus 17410766 Active 2019 Cornel Herrera DO [address] [place] [address], [phone], [facility] 0 09:54:21 Glaucoma 00623916 Active 2021 Cornel Herrera DO [address] [place] [address], [phone], [facility] 2 12:11:44 Impaired fasting glycemia 911437081 Completed 201708/22/2019 Cornel Herrera DO [address] [place] [address], [phone], [facility] 0 09:54:12 Hyperten sive disorder 71949183 Active 2017 Alma Delia price [facility] 8 09:18:41 Anxiety 13934996 Active 2017 [facility] 8 09:18:48 Prolapse d lumbar interver tebral disc 885836262 Active 2017 [facility] 8 09:19:00 History of lumbar discecto my 76779091585 668360 Active 2017 2017 Cornel Herrera DO [address] [place] [address], [address], [facility] 0 11:14:29 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 Cornel Herrera DO [address] [place] [address], [address], [facility] 3 13:12:50 Cellulit is of lower limb 561406236 Active 2023 Cornel Herrera DO [address] [place] [address], [address], [facility] 4 15:43:15 Cellulit is of right lower limb 79087658260 559295 Active 2023 Cornel Herrera DO [address] [place] [address], [address], [facility] 4 15:43:27 Sleep apnea 83377764 Active 2023 Cornel Herrera DO [address] [place] [address], [address], [facility] 4 15:02:45 Problem Notes None recorded. Procedures Surgical History Date Name Laterality Status Provider Name and Address Organization Details Recorded Time 04/01/20 23 Colonoscopy completed Cornel DeClair Herrera, DO [address] [facility], [place], [address], [place] [facility] 04/17/2023 17:21:26 Imaging Results Imaging Date Name Status LastModified by Organiz ation Details LastModified Time 01/12/2023 US, abdomen completed [facility] (Medical Records) [address] [place] [address], [address], 01/14/2023 06:40:20 Procedure Notes None recorded. Medical Equipment None Reported. Allergies No known drug allergies Medications Name Sig Start Date Stop Date Status Note LastModified by Organization Details LastModified Time cyclobenzap rine 10 mg tablet Take 1 tablet every day by oral route at bedtime. 09/01 completed Not Available Not Available Not Available latanoprost 0.005 % eye drops active Not Available Not Available Not Available silver sulfadiazin e 1 % topical cream APPLY A 1/16 INCH (1.5 MM) THICK LAYER TO ENTIRE BURN AREA BY TOPICALRO DENISSE 2 TIMES PER DAY active Not Available Not Available No t Available metformin 500 mg tablet TAKE 1 TABLET BY MOUTH TWICE A DAY 11/01 completed Not Available Not Available Not Available atorvastati n 20 mg tablet TAKE 1 TABLET BY MOUTH EVERY DAY 2024 active Not Available Not Available Not Avai lable prednisone 20 mg tablet Take 3 tabs X3 days, 2 Tabs X3 days , 1 Tab X3 days 12/09 completed Not Available Not Available Not Available atenolol 25 mg tablet take 1 tablet by mouth once a day 11/01 completed Not Available Not Available Not Available Accu-Chek Softclix Lancets 03/05 completed Not Available Not Available Not Available oseltamivir 75 mg capsule Take 1 capsule twice a day by oral route for 5 days. 05/26 completed Not Available Not Available Not Available metformin 1,000 mg tablet TAKE 1 TABLET BY MOUTH TWICE A DAY active Not Available Not Available No t Available ketoconazol e 2 % topical cream APPLY TO THE AFFECTED AREA(S) BY TOPICAL ROUTE twice DAILY for 14 days 08/21 completed Not Available Not Available Not Available naproxen 500 mg tablet Take 1 tablet twice a day by oral route with meals. 09/01 completed Not Available Not Available Not Available duloxetine 30 mg capsule,del ayed release TAKE 1 CAPSULE BY MOUTH EVERY DAY 07/01 completed Not Available Not Available Not Available Januvia 100 mg tablet TAKE 1 TABLET BY MOUTH EVERY DAY 03/27 completed Not Available Not Available Not Available Lumigan 0.01 % eye drops INSTILL 1 DROP INTO BOTH EYES AT BEDTIME active Not Available Not Available No t Available OneTouch Verio test strips Take 1 strip twice a day by miscell. route. active Not Available Not Available No t Available Jardiance 10 mg tablet TAKE 1 TABLET BY MOUTH EVERY DAY 2023 active Not Available Not Available Not Avai lable Trulicity 1.5 mg/0.5 mL subcutaneou s pen injector INJECT SUBCUTANE OUSLY 0.5ML EVERY WEEK FOR 30 DAYS. 10/15 completed Not Available Not Available Not Available Trulicity 0.75 mg/0.5 mL subcutaneou s pen injector INJECT 0.5 ML EVERY WEEK BY SUBCUTANE OUS ROUTE. 10/22 completed Not Available Not Available Not Available Trulicity 3 mg/0.5 mL subcutaneou s pen injector INJECT 1 PEN SUBCUTANE OUSLY ONCE EVERY WEEK 02/10 completed Not Available Not Available Not Available Mounjaro 7.5 mg/0.5 mL subcutaneou s pen injector Inject 0.5 mL every week by subcutane ous route for 30 days. 2024 active Not Available Not Available Not Avai lable Mounjaro 5 mg/0.5 mL subcutaneou s pen injector Inject 0.5 mL every week by subcutane ous route for 90 days. 09/15 completed Not Available Not Available Not Available Vitals Date Recorded Body height Body mass index (BMI) Body weight Heart rate Oxygen saturation Oxygen saturation in Arterial blood by Pulse oximetry Systolic blood pressure Diastolic blood pressure Provider Name and Address Organization Details Last Updated DateTime 3 172.72 cm 29.5 kg/m2 76160.9 2 g 115 /min 97 % 97 % 152 mm[Hg] 78 mm[Hg] Cornel DeClair Anndarío, DO [address] [place], [address], [facility] 3 15:52:24 Date Recorded Body height Body mass index (BMI) Body weight Heart rate Oxygen saturation Oxygen saturation in Arterial blood by Pulse oximetry Systolic blood pressure Diastolic blood pressure Provider Name and Address Organization Details Last Updated DateTime 4 172.72 cm 29.2 kg/m2 77292.7 4 g 106 /min 96 % 96 % 126 mm[Hg] 86 mm[Hg] Carissa Yang [facility] 4 15:44:58 Date Recorded Body height Body mass index (BMI) Body weight Heart rate Respiratory rate Oxygen saturation Oxygen saturation in Arterial blood by Pulse oximetry Systolic blood pressure Diastolic blood pressure Provider Name and Address Organization Details Last Updated DateTime 4 172.72 cm 29.6 kg/m2 74639.5 1 g 93 /min 18 /min 98 % 98 % 134 mm[Hg] 82 mm[Hg] Bienvenido Torres [facility] 4 15:09:24 Social History Question Answer Notes LastModified by Organizat ion Details LastModified Time Tobacco Smoking Status Never Smoker Not Available [facility] 02/19/2020 03:36:24 What Was The Date Of Your Most Recent Tobacco Screening? 09/16/2023 [email or web address] Information not available 09/16/2023 Do You Or Have You Ever Used Any Other Forms Of Tobacco Or Nicotine? No [email or web address] Information not available 02/08/2023 Sex: Unknown Functional Status None recorded. Mental Status None recorded. Family History Nothing Reported. Medical History Condition Response Coronary Artery Disease N Other N Gout N Kidney Stones N Blood Diseases N Breast Cancer N Blood Transfusion N COPD N Depression N Lung Disease N Defects or Inherited Disease N Anxiety Disorder N Muscle, Joint, or Bone Problems N Obesity N Vision or Eye Problems N Arthritis N Infertility N Polyps N Mental Disorder N Cancer N Stroke N Varicosities N Endometriosis N Bladder or Kidney Problems N High Cholesterol N Liver Disease N Fibromyalgia N Headaches N Kidney Disease N Allergies/Hayfever N Heart Problems N Hospitalizations N Thyroid Problems N GI Problems N Skin Problems N Eating Disorder N Anemia N MRSA exposure N Constipation N Mental Illness N Ovarian Cancer N Diabetes N Seizures/Epilepsy N Tuberculosis N Congestive Heart Failure (CHF) N Eczema N Diverticulitis N Abuse/Domestic Violence N Asthma N Reflux/GERD N Hepatitis N Heart Disease N Pulmonary Embolism N Hypertension N Osteoporosis N Chicken Pox N Autism Spectrum Disorder (ASD) N Immunizations Vaccine Type Date Status Note Provider Nam e and Address Organization Details Recorded Time Influenza, split virus, quadrivalent, preservative 03/11/20 21 completed Alma Delia price [facility] 03/27/2021 08:54:12 pneumococcal polysaccharide PPV23 03/30/20 21 completed Cornel Herrera DO [address] [place] [address], [address], [facility] 07/01/2021 09:36:47 influenza, unspecified formulation 03/14/20 24 [facility] 03/19/2024 08:42:02 Influenza, split virus, quadrivalent, preservative 02/11/20 18 completed [facility] 05/26/2018 14:32:55 Influenza, split virus, quadrivalent, preservative 02/18/20 19 completed [facility] 04/06/2019 10:14:23 Influenza, split virus, quadrivalent, preservative 03/17/20 [facility] 07/15/2020 14:39:39 COVID-19, mRNA, LNP-S, PF, 100 mcg/0.5mL dose or 50 mcg/0.25mL dose 06/17/19 emani price [facility] 07/15/2020 14:39:58 COVID-19, mRNA, LNP-S, PF, 100 mcg/0.5mL dose or 50 mcg/0.25mL dose 07/15/19 emani Macias [facility] 07/15/2020 14:40:05 Past Encounters Encounter ID Performer Location Encounter Start Date Encounter Closed Date Diagnosis/Indication Diagnosis SNOMED-CT Code Diagnosis ICD10 Code Diagnosis Note [id number] Cornel Herrera DO [facility] [address] [facility],[place] [address] 11/01/2017 10:28:20 11/01/2017 11:36:29 Adult health examination 994984952 long detailed discussion re diet carbs. volume will need to check fbw and include another a1c as he will be back on metformin Active or passive immunization 789507582 Z23 Impaired f asting glycemia 548242081 R73.01 restart metformin and rechk lab inb 2 mo Hypertensive disorder 38 305020 I10 cont to take med [id number] Dorothy Nielsen NP, S [facility] [address] [facility],[email or web address] [address] 11/29/2017 14:20:34 12/02/2017 09:28:44 Acute low back pain 044744528 M54.5 rest, out of work through , has tuesday off Lumbar radiculopathy 128 652853 M54.16 [id number] Dorothy Nielsen NP, S [facility] [address] [facility],[email or web address] [address] 12/09/2017 08:53:30 12/09/2017 14:20:35 Acute low back pain 824310571 M54.5 Body mass index 30+ - obesity 309825109 Z68.39 discuss how weight loss can help with back pain Impaired f asting glycemia 120466226 R73.01 Pt has f/u with 01/13-wishe s to wait and discuss at that time [id number] Cornel Herrera DO [facility] [address] [facility],[place] [address] 01/30/2018 14:20:28 01/30/2018 15:32:06 Hypertensive disorder 47103212 I10 cont to take med Impaired f asting glycemia 196817241 R73.01 now has type 2 dm and araseli need to increase metformin to bid Type 2 mark betes mellitus 35665086 E11.9 has started to increase [place] increase metformin [place] bid [id number] Cornel Herrera DO [facility] [address] [facility],[email or web address] [address] 05/26/2018 14:18:10 05/26/2018 15:05:03 Type 2 diabetes mellitus 52812284 E11.9 has started to increase will increase metformin to bid Hypertensive disorder 38 867599 I10 cont to take med Family his tory of hemochromatosis 217273084 Z83.49 will need lab [id number] Cornel Herrera [facility] [address] [facility], [place] [address] 09/01/2018 09:13:34 09/01/2018 12:09:37 Hypertensive disorder 15712939 I10 cont to take med and is doing great no changes is needed Impaired f asting glycemia 116368892 R73.01 a1c is down but needs to continue to work hard and cont to lose wgt as he is and i suspect this dx will become non-issue. we had needed to increase metformin to bid but as his wgt comes down we will be able to discontinu e the metformin rechk in 2 months [id number] Cornel Herrera [facility] [address] [facility], [place] [facility] [address] 11/01/2018 09:09:04 11/01/2018 13:40:38 Hypertensive disorder 41605459 I10 cont to take med and is doing great no changes is needed Impaired f asting glycemia 540508487 R73.01 a1c is up and needs to continue to work hard and cont to lose wgt as he is and i suspect this dx will become non-issue. we had needed to increase metformin to 1000mg bid but as his wgt comes down we will be able to decrease the metformin rechk in 2 months Tinea pedi s caused by Trichophyton 85313586 B35.3 [id number] Cornel Herrera [facility] [address] [facility],[place] [address] 01/17/2019 13:48:50 01/17/2019 14:52:42 Hypertensive disorder 19725783 I10 cont to take med and is doing great no changes is needed Impaired f asting glycemia 202215921 R73.01 a1c is down to 7.4 and is the lowest its been in a year will cont to follow and pt encouraged and needs to continue to work hard and cont to lose wgt as he is and i suspect this dx will become non-issue. we had needed to increase metformin to 1000mg bid but as his wgt comes down we will be able to decrease the metformin rechk in 2 months Anxiety 20556072 F41.9 stable [id number] Cornel Solis LinkDO [facility] [address] [facility], [place] [address] 04/06/2019 10:08:11 04/06/2019 10:39:03 Impaired fasting glycemia 396298106 R73.01 a1c is at 8.0 and is still a bit off he has kept the weight off and i reviewed his eating habits pt encouraged and needs to continue to work hard and cont to lose wgt as he is and i suspect this dx will become non-issue. we have increased the metformin to 1000mg bid but as his wgt comes down we will be able to decrease his sugars are currently uncontroll ed and we are struggling to figure out why and will ask him to cut his carbs more and we will add januvia to the metformin he is keeping the weight off and is now lifting wgts and working out so i anticipate his sugars to drop back to normal in short order as long as he cont to cut out carbs rechk in 2 months Hypertensive disorder 38 024587 I10 cont to take med and is doing great no changes is needed Anxiety 38300453 F41.9 stable [id number] Cornel Solis LinkDO [facility] [address] [facility], [place] [address] 06/08/2019 09:29:42 06/08/2019 10:01:43 Impaired fasting glycemia 596145077 R73.01 a1c is at 7.0 and is much improved he has kept the weight off and i reviewed his eating habits pt encouraged and needs to continue to work hard and cont to lose wgt as he is down another 6 lbs and i suspect this dx he is keeping the weight off and is now lifting wgts and working out so i anticipate his sugars to cont to drop back to normal in short order as long as he cont to cut out carbs rechk in 2 months Hypertensive disorder 38 168715 I10 cont to take med and is doing great no changes is needed [id number] Cornel Solis Link [facility] [address] [facility], [place] [address] 08/22/2019 09:32:27 08/22/2019 10:40:59 Hypertensive disorder 59286967 I10 cont to take med and is doing great no changes is needed Anxiety 76827957 F41.9 stable no issues Type 2 mark betes mellitus 69246192 E11.9 has remained stable metformin to bid has been working ok and cont with januvia a1c is 7.2 so remains stable History of lumbar discectomy 4617125950 5948974 Z98.890 back is stable and he is careful about over doing it Prolapsed lumbar intervertebral disc 207181990 M51.26 as above stable if gets bad again will need to have fusion [id number] Cornel Herrera DO [facility] [address] [facility],[place] [address] 12/10/2019 09:43:58 12/10/2019 11:10:04 Type 2 diabetes mellitus 98596207 E11.9 has remained stable metformin to bid has been working ok and cont with januvia a1c is 7.2 again so remains stable Hypertensive disorder 38 981816 I10 cont to take med and is doing great no changes is needed Prolapsed lumbar intervertebral disc 837205295 M51.26 seems stable and is doing well so far [id number] Cornel Herrera DO [facility] [address] [facility],[place] [address] 03/05/2020 10:16:34 03/05/2020 11:45:36 Active or passive immunization 765254051 Z23 Adult heal th examination 583603518 Z00.00 long detailed discussion re diet carbs. volume physically he is doing ok needs to be careful with his back disease will need to check fbw and include another a1c as he will be back on metformin will cont to monitor Type 2 mark betes mellitus [id number] E11.9 has remained stable metformin to bid has been working ok and cont with januvia a1c is 7.6 and before that was 7.2 again so has increased a bit Hypertensive disorder 38 062567 I10 cont to take med and is doing great no changes is needed [id number] Cornel Herrera DO [facility] [address] [facility] [address] [address] 07/15/2020 14:24:56 07/15/2020 16:12:30 Type 2 diabetes mellitus 04249716 E11.9 has remained stable metformin to bid has been working ok and cont with januvia a1c is 8.0 was 7.6 and before that was 7.2 again so has increased a bit Hypertensive disorder 38 861148 I10 cont to take med and is doing great no changes is needed Anxiety 08085686 F41.9 stable no issues [id number] Cornel Herrera [facility] [address] [facility] [address],[place] [address] 09/09/2020 14:54:27 09/09/2020 15:30:02 Type 2 diabetes mellitus 84826986 E11.9 has remained stable metformin to bid has been working ok and cont with januvia a1c is now 6.6 on trulicity! !! he was prior 8.0 was 7.6 and before that was 7.2 again so has improved dramatical ly Hypertensive disorder 38 889681 I10 cont to take med and is doing great no changes is needed Anxiety 38191595 F41.9 stable no issues and improving [id number] Cornel Herrera [facility] [address] [facility] [address],[place] [address] 12/26/2020 09:15:30 12/26/2020 10:47:06 Type 2 diabetes mellitus 32519188 E11.9 has remained stable metformin to bid has been working ok and cont with januvia a1c is now still 6.5 and was 6.6 on trulicity! !! and this is off the januvia he was prior 8.0 was 7.6 and before that was 7.2 again so has improved dramatical ly so we will stop the pm dose of metformin and increase the trulicity to Hypertensive disorder 38 961159 I10 cont to stay off med and is doing great but we will have him keep checking at home and record and bring in next visit no changes is needed [id number] Cornel Herrera [facility] [address] [facility] [address],[place] [address] 03/27/2021 08:48:42 03/27/2021 09:22:34 Type 2 diabetes mellitus 94583091 E11.9 has remained stable metformin to bid has been working ok and cont with januvia a1c is now still 6.5 and was 6.6 on trulicity! !! and this is off the januvia he was prior 8.0 was 7.6 and before that was 7.2 again so has improved dramatical ly so we will cut the dose of metformin to 1/2 tab daily and cont the trulicity at 3 and see him in june Hypertensive disorder 38 468862 I10 cont to stay off med and is doing great but we will have him keep checking at home and record and bring in next visit no changes is neededchol est in [id number] Cornel Herrera, [facility] [address] [facility] [address],[place] [address] 07/01/2021 09:21:40 07/01/2021 15:10:42 Type 2 diabetes mellitus 37888240 E11.9 has remained stable but a1c is up today we will have to restart the meforminmi croalb has also persisted he was prior 8.0 was 7.6 and before that was 7.2 again so has improved dramatical ly Anxiety 55805771 F41.9 stable no issues and improving Hypertensive disorder 38 077861 I10 cont to stay off med and is doing great but we will have him keep checking at home and record and bring in next visit no changes is neededchol est in spring [id number] Cornel Herrera [facility] [address] [facility] [address],[place] [address] 12/15/2021 11:23:13 12/15/2021 12:13:07 Type 2 diabetes mellitus 49969484 E11.9 has remained stable but a1c is pending and if still up will ahve to add 2nd metformins een by dr jean 2 wk ago and was good not 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 glaucomami croalb has also persisted he was prior 8.0 was 7.6 and before that was 7.2 again so has improved dramatical ly Hypertensive disorder 38 511222 I10 cont to stay off med and is doing great but we will have him keep checking at home and record and bring in next visit no changes is neededchol est in spring Prolapsed lumbar intervertebral disc 912419341 M51.26 seems stable and is doing well so far although has been stiff on occasion in the am otherwise no radiculopa thy Anxiety 08079503 F41.9 stable no issues and improvings tress not bad at this point [id number] Cornel Herrera DO [facility] [address] [facility] 7 06/11/2022 16:12:18 06/14/2022 09:04:18 Type 2 diabetes mellitus 15387187 E11.9 has remained stable but a1c is 10 and if still up will have to add gaby e is still exercises 3x per week had been 9.2 he was prior 8.0 was 7.6 and before that was 7.2 again so has improved dramatical ly Hypertensive disorder 38 837218 I10 cont to stay off med and is doing great but we will have him keep checking at home and record and bring in next visit no changes is neededchol est in spring Cornel Herrera DO [facility] [address] [facility] 7 10/15/2022 15:42:36 10/18/2022 08:05:26 Type 2 diabetes mellitus 55071604 E11.9 a1c now down to 7.1 was 10.8 Hypertensive disorder 38 337267 I10 cont to stay off med and is doing great but we will have him keep checking at home and record and bring in next visit no changes is neededchol est in fall Cornel Herrera DO [facility] [address] [facility],[place] 7 02/08/2023 15:23:03 02/08/2023 16:48:16 Type 2 diabetes mellitus 79485468 E11.9 a1c now down to 7.2 was down to 7.1 was 10.8he is taking the trulicity and doing ok overallwon dering about the trulicity changing to mounjaro Hypertensive disorder 38 793612 I10 cont to stay off med and is doing great but we will have him keep checking at home and record and bring in next visit no changes is neededchol est in [id number] Cornel Herrera DO [facility] [address] [facility] [address],[place] 7 05/13/2023 15:38:19 05/13/2023 16:39:49 Type 2 diabetes mellitus 98965506 E11.9 a1c now staying at 7.2 was at 7.2 was 7.1mcharanjittashi mccartney is working ok and needs to consider increasing the dose to 7.5 Hypertensive disorder 38 339703 I10 cont to stay off med and is doing great but we will have him keep checking at home and record and bring in next visit no changes is neededchol est in fall [id number] Cornel Herrera DO [facility] [address] [facility],[place] [address] 09/16/2023 14:48:15 09/16/2023 15:56:34 Depression screening 223438594 Z13.31 negative Type 2 mark betes mellitus 75593332 E11.9 has increase we will use a higher dose 7.5 Cellulitis of right lower limb [id number] 2795652 L03.115 will use conserv care with silver sulfinjury occured after scratching an rash Hypertensive disorder 38 153486 I10 cont to stay off med and is doing great but we will have him keep checking at home and record and bring in next visit no changes is neededchol est in fall [id number] Cornel Herrera DO [facility] [address] [facility], [place] [address] 12/13/2023 09:19:49 01/30/2024 16:08:09 Type 2 diabetes mellitus 11531184 E11.9 has increase we will use a higher dose 7.5 Hypertensive disorder 38 972487 I10 cont to stay off med and is doing great but we will have him keep checking at home and record and bring in next visit no changes is neededchol est in fall Depression screening 171 084692 Z13.31 negative [id number] Cornel Herrera [facility] [address] [facility], [place] [address] 12/14/2023 11:16:33 12/14/2023 16:22:21 Sleep apnea 56256927 G47.30 waking up at night gasping for breath Hypertensive disorder 38 632658 I10 cont to stay off med and is doing great but we will have him keep checking at home and record and bring in next visit no changes is neededchol est in fall Type 2 mark ian mellitus 86405662 E11.9 has been doing well and is now down to 7.1 from 7.6 Health Concerns Section Related Observation LastModified by Organization Detai ls LastModified Time None Recorded Concern Status LastModified by Organization Details LastModified Time None Recorded Advance Directives Directive None Recorded Payers Encounter Date Sequence Insurance Name Policy Number Policy Turner Covered Member ID Turner Member ID Guarantor Name 02/08/2023 1 [place] [employer] 105 Santy Barabani [id number] Santy Barabani 05/13/2023 1 [place] 105 Santy Barabani [id number] Santy Barabani 09/16/2023 1 [place] 105 Santy Barabani [id number] Santy Barabani 12/13/2023 1 [place] 105 Santy Barabani [id number] Santy Barabani 12/14/2023 1 [place] 105 Santy Barabani [id number] Santy Barabani Notes Date Note Type Note Provider Name and Address Organization Details Recorded Time 3 text/htm l here for rechk and is doing ok overallhe is feeling good overallstates no cp no sobgoing for colonosc in mar Cornel Herrera, DO [address] [place] [address], [place], [address], [facility] 02/08/2023 16:43:18 4 text/htm l Care Management - DiabetesReported bypatient.Self Care:seeing eye doctor yearly for dilated eye exam; checking feet regularly; normal range of home blood sugars (in the low 100s); no side effects from medications Associated Symptoms:symptoms are usually well controlled; no fatigue; no dizziness; no excessive sweating; no headaches; no confusion; no increased thirst; no increased appetite; no increased urination; no blurred vision; no numbness of feet; no calluses on feet here for rechk note his mom had a [place] LAD last year and ended up with cabgthen tells me his dad had 3 vssl cabg last monthalso grandfather and uncle also with heart diseaselong discussion re use of meds and his lab and his fam hx Cornel Solis [place], [address] [place], [address], [facility] 05/13/2023 16:38:05 4 text/htm l here fo r dm rechk and is doing ok overallno cp no sobstates feeling well a1c has gone up to 7.6 from 7.2 Cornel Solis DO Link [address] [place], [address], [facility] 09/16/2023 15:47:14 4 text/htm l MEDS- complaint, no ADRs DIET- non compliant complaint with low sugar, lean proteins, lots of veggies, low refined CHO, limits ETOH, doesn't use tobacco products EXERCISE- does not exercise, recognizes the importance, struggles with motivation exercises regularly- typically: LIPIDS- at goal CMP- within normal limits AIC- at goal MICROALBUMIN- within normal limits EYE EXAM- last done: next due: FOOT EXAM- last done: next due: Cornel DeClair Herrera DO [address] [place], [address], [facility] 01/30/2024 16:08:08 4 text/htm l Care Management - DiabetesReported bypatient.Self Care:seeing eye doctor yearly for dilated eye exam; checking feet regularly; normal range of home blood sugars (in the low 100s); no side effects from medications Associated Symptoms:symptoms are usually well controlled; no fatigue; no dizziness; no excessive sweating; no headaches; no confusion; no increased thirst; no increased appetite; no increased urination; no blurred vision; no numbness of feet; no calluses on feetCare Management - HypertensionReported bypatient.Self Care:not under emotional stress Severity:symptoms are improving; does not interfere with daily activities Associated Symptoms:no dizziness; no lightheadedness; no chest pain; no shortness of breath; no palpitations; no edema; no calf muscle cramps; no blurred vision; no confusion; no headaches; no fatigue patient is evaluated via tele/video assessment per patient consentduring current pandemic has had episodes of waking up at night gasping for breath Cornel Herrera, DO [address] [facility], [place], [address], [facility] 12/14/2023 15:11:05
--- OUTSIDE RECORDS SUMMARY | 2024-05-14 20:06 | XMS_ITS | Encounter Summary ---
Author Name [facility] Organization [facility] Address [address] [place] [address] Care Team Providers Care Stained Glass Glazier Helper Name Role Phone SLIM HUI Primary Care [...] KARMA FAMIL Y Apr 20, 2009 [id number] MAGGIE SHAFFER PATIENT [place]-F EP [employer] PRESCRIPT ION FEP CAREM ARK Apr 18, 2010 [id number] MAGGIE SHAFFER PATIENT Selected Encounter This section includes the information on record at [place] for the Encounter. Date/Time Encounter Type Encounter Description Reason Pro vider Source IHE Encounter Template Text not used by [facility]
--- OUTSIDE RECORDS SUMMARY | 2024-05-14 20:06 | XMS_ITS | Patient Health Record ---
Author Organization [facility] Address [address] [place] [address] Care Team Providers Care Garnishment Specialist Name Role Phone SLIM HUI M.D. Primary Care Provider Francis Jaramillo Unavailable [phone] ALLERGIES No Known Allergies REASON FOR REFERRAL No Information MEDICATIONS Medication SIG (Take, Route, Frequency, Duration) Notes Start Date End Date Status metFORMIN HCl 1000 MG Oral for 90 Active Trulicity 3 MG/0.5ML Subcutaneous for 28 Every Tuesday Active Jardiance 10 MG Oral for 30 Ac tive Latanoprost 0.005 % Ophthalmic for 90 Active Atorvastatin Calcium 20 MG TAKE 1 TABLET BY MOUTH EVERY DAY FOR 30 DAYS Oral for 90 Active SOCIAL HISTORY Tobacco Use: Social History Observation Description Date Details (start date - stop date) Never Smoker NA - NA Sex Assigned At : Social History Observation Description Sex Assigned At Unknown Tobacco Use/Smoking Question Answer Notes Patient is a nonsmoker Alcohol Screen Question Answer Notes Did you have a drink containing alcohol in the p ast year? No Points 0 Interpretation Negative PROBLEMS Problem Type ICD Code Onset Dates Problem Status W/U Status Risk SNOMED Code Notes Problem Elevated liver function tests (R79.89) Active confirmed 055152674 Problem Colon cancer screening (Z12.11) Active confirmed 078957913 Problem Family history of colon cancer (Z80.0) Active confirmed 251924338 Problem Diverticulosis of large intestine without perforation or abscess without bleeding (K57.30) Active confirmed Diverticul ar disease of colon (074426139) PLAN OF TREATMENT Pending Test Test Name Order Date LIVER PROFILE 12/28/2022 US abdomen complete 12/28/2022 Future Test Test Name Order Date COLONOSCOPY 12/28/2022 Insurance Providers Payer Name Payer Address Payer Phone Subscriber Number Group Number Insured Name Patient Relationship to Insured Coverage Start Date Coverage End Date [facility] [employer] [address] [place] [phone] [id number] MAGGIE SHAFFER Self - patient is the insured MEDICAL (GENERAL) HISTORY Medical History History ICD Code Diabetes mellitus Glaucoma Denies IN,CVA,Lung disease,renal disease Surgical History Surgery Date(Month/Year) Back L5 X2
--- OUTSIDE RECORDS SUMMARY | 2024-05-14 20:06 | XMS_ITS ---
Author Organization [facility] Address [address] [place] [address] Care Team Providers Care Harvesting Manager Name Role Phone EZ Oshea, SLIM Primary Care Provider Francis Jaramillo [phone] Encounters Encounter Location Date Provider Diagnosis [facility] [address] [place] [address] 03/27/2023 Francis Meadows PLAN OF TREATMENT No Information
--- OUTSIDE RECORDS SUMMARY | 2024-05-14 20:06 | XMS_ITS ---
Author Organization [facility] Address [address] [place] [address] Care Team Providers Care Commercial Credit Specialist Name Role Phone EZ Oshea, SLIM Primary Care Provider Francis Jaramillo Unavailable [phone] REASON FOR VISIT screening,fam hx colon ca PROBLEMS Problem Type ICD Code Onset Dates Problem Status W/U Status Risk SNOMED Code Notes Problem Diverticulosis of large intestine without perforation or abscess without bleeding (K57.30) Active confirmed Diverticul ar disease of colon (560995097) Encounters Encounter Location Date Provider Diagnosis [facility] Outpatient [address] [place] [phone] 04/01/2023 Francis Meadows Encounter for scre ening colonoscopy Z12.11 ; Family history of colon cancer Z80.0 ; Diverticulosis of large intestine without perforation or abscess without bleeding K57.30 and Other hemorrhoids K64.8 ASSESSMENTS Encounter Date Diagnosis Assessment Notes Treatment Notes Treatment Clinical Notes 04/01/2023 Encounter for screening colonoscopy (ICD-10 - Z12.11) 04/01/2023 Family history of colon cancer (ICD-10 - Z80.0) 04/01/2023 Diverticulosis of large intestine without perforation or abscess without bleeding (ICD-10 - K57.30) 04/01/2023 Other hemorrhoids (ICD-10 - K64.8) PLAN OF TREATMENT No Information
--- OUTSIDE RECORDS SUMMARY | 2024-05-14 20:06 | XMS_ITS ---
Author Organization [facility] Address [address] [place] [address] Care Team Providers Care Podiatric Medicine Professor Name Role Phone SLIM HUI M.D. Primary Care Provider Francis Jaramillo [phone] REASON FOR VISIT Mounjaro injections-Call PAT office Encounters Encounter Location Date Provider Diagnosis [facility] [address] [place] [address] 03/27/2023 Francis Meadows PLAN OF TREATMENT No Information
--- OUTSIDE RECORDS SUMMARY | 2024-05-14 20:06 | XMS_ITS | Encounter Summary ---
Author Name [facility] Address [address] [place] [id number] Care Team Providers Care Us Administrative Law Judge Name Role Phone SLIM HUI Primary Care [...] KARMA FAMIL Y Apr 20, [phone] [id number] JEFEEDUARDA MAGGIE PATIENT CAREMARK-F EP BCBS PRESCRIPT ION FEP CAREM ARK Apr 18, 2010 [id number] [phone] [id number] [phone] MAGGIE SHAFFER PATIENT Selected Encounter This section includes the information on record at [facility] for the Encounter. Date/Time Encounter Type Encounter Description Reason Provider Source Sep 26, 2023 08:30 AM OFFICE O/P EST LOW 20 MIN PRIMARY CARE/MEDICINE ICD-10-CM E11.9 Type 2 diabetes mellitus without complications SLIM HUI Encounter Template Text not used by [place] Assessments - Encounter Diagnoses This section includes the primary and secondary diagnoses documented for the Encounter. Date/Time Primary/Secondary Diagnosis Diagnosis Name Provider Source Oct 17, 2023 12:43 PM PRIMARY Type 2 diabetes mellitus without complications SLIM HUI Plan of Treatment: Future Appointments (+ 6 months) and Future Tests (+/- 45 days) The Plan of Treatment section includes future care activities for the patient from [facility]. This section includes future appointments and future orders which are active, pending or scheduled. Future Appointments This section includes appointments that were scheduled to occur 6 months from the date of the Encounter, up to a maximum of 20 appointments. The data comes from all [place] treatment facilities. Appointment Date/Time Appointment Type Appointme nt Facility Name Dec 30, 2023 08:00 AM AMBULATORY - MEDICINE [facility] Feb 17, 2024 09:00 AM AM[facility]ULATORY MEDICINE [facility] Feb 17, 2024 10:[address] [facility] MEDICINE [facility] Social History: Smoking Status (Most current) and Tobacco Use (All prior to encounter date) This section includes the most current, and the historical, smoking and tobacco- related health factors from the [place] facility where the Encounter took place. Current Smoking Status This section includes the most current smoking, or tobacco-related health factor, from the [place] facility where the Encounter took place. Date/Time Current Smoking Status Comment Joy moranfausto Sep 26, 2023 08:30 AM PA-TOBACCO NEVER USED [place] Tobacco Use History This section includes a history of the smoking, or tobacco-related health factors, that were collected on or before the date of the Encounter. The data comes from the [place] facility where the Encounter took place. Date/Time Smoking Status/Tobacco Use Comment F acility Jul 19, 2022 03:00 PM PA-TOBACCO NEVER USED [place] Encounter Notes: All associated encounter notes This section contains the clinical notes associated to the Encounter. Date/Time Encounter Note(s) Provider Source Sep 26, 2023 08:39 AM PREVENTIVE MEDICIN E NURSING NOTE: LOCAL TITLE: CLINICAL REMINDERS/NURSING STANDARD TITLE: PREVENTIVE MEDICINE NURSING NOTE DATE OF NOTE: SEP 26, 2023@08:39 ENTRY DATE: SEP 26, 2023@08:39:04 AUTHOR: MYRA OLIVER COSIGNER: URGENCY: STATUS: COMPLETED Advance Directive Screen MH AD: Patient does not have a completed advance directive on file at any facility, [facility] or outside. S/he is not interested in completing one at this time. The patient received education about Advance Directives and written notification of his/her rights. Suicide Screen: C-SSRS Screening [place] Suicide Severity Rating Scale (C-SSRS) screener 1. Over the past month, have you wished you were or wished you could go to sleep and not wake up? No 2. Over the past month, have you had any actual thoughts of killing yourself? No 3. Over the past month, have you been thinking about how you might do this? Response not required due to responses to other questions. 4. Over the past month, have you had these thoughts and had some intention of acting on them? Response not required due to responses to other questions. 5. Over the past month, have you started to work out or worked out the details of how to kill yourself? Response not required due to responses to other questions. 6. If yes, at any time in the past month did you intend to carry out this plan? Response not required due to responses to other questions. 7. In your lifetime, have you ever done anything, started to do anything, or prepared to do anything to end your life (for example, collected pills, obtained a gun, gave away valuables, went to the roof but didn't jump)? No 8. If YES, was this within the past 3 months? Response not required due to responses to other questions. Homelessness/Food Insecurity Screen: In the past 2 months, have you been living in stable housing that you own, rent, or stay in as part of a household? Yes - Living in stable housing. Are you worried or concerned that in the next 2 months you may NOT have stable housing that you own, rent, or stay in as part of a household? No - Not worried about housing near future The reports the following: Within the past 12 months, you worried whether your food would run out before you got money to buy more. Never true Within the past 12 months, the food you bought just didn't last and you didn't have money to get more. Never true Depression Screening: Perform PHQ-2 A PHQ-2 screen was performed. The score was 0 which is a negative screen for depression. Over the past two weeks, how often have you been bothered by the following problems? 1. Little interest or pleasure in doing things Not at all 2. Feeling down, depressed, or hopeless Not at all Pneumococcal Conjugate Vaccine (PCV15/PCV20): Refuses PCV vaccine Immunization: PNEUMOCOCCAL CONJUGATE, UNSPECIFIED FORMULATION Refusal Reason: PATIENT DECISION Patient refuses all immunization(s) in the PneumoPCV group Date Documented: 09/26/23 08:40 PTSD Screening: PC-PTSD-5 A PTSD screening test (PC-PTSD-5) was negative (score=0). IN THE PAST MONTH, have you ever had any experience that was so frightening, horrible or traumatic. For example: A serious accident or fire a physical or sexual assault or abuse An earthquake or flood A war Seeing someone be killed or seriously injured Having a loved one through homicide or suicide 1. Have you ever experienced this kind of event? NO 2. Had nightmares about the event(s) or thought about the event(s) when you did not want to? Response not required due to responses to other questions. 3. Tried hard not to think about the event(s) or went out of your way to avoid situations that reminded you of the event(s)? Response not required due to responses to other questions. 4. Been constantly on guard, watchful, or easily startled? Response not required due to responses to other questions. 5. [place] numb or detached from people, activities, or your surroundings? Response not required due to responses to other questions. 6. [place] guilty or unable to stop blaming yourself or others for the event(s) or any problems the event(s) may have caused? Response not required due to responses to other questions. Tobacco Use Screening: The patient has never used tobacco. Influenza Immunization: No influenza vaccination was received during the recent influenza season. Alcohol Use Screen (AUDIT-C): Alcohol Screen: SCREEN FOR ALCOHOL (AUDIT-C) An alcohol screening test (AUDIT-C) was negative (score=0). 1. How often did you have a drink containing alcohol in the past year? Consider a drink to be a 12 ounce can or bottle of regular beer, 8 ounces of malt liquor, a 5 ounce glass of table wine, or a 1.5 ounce shot of liquor (like scotch, gin, or vodka). Never 2. How many drinks containing alcohol did you have on a typical day when you were drinking in the past year? Response not required due to responses to other questions. 3. How often did you have six or more drinks on one occasion in the past year? Response not required due to responses to other questions. COVID-19 Immunization: Referred to another clinic for immunization (desired vaccine unavailable at this location) Sexual Orientation: The patient thinks of their sexual orientation as: Straight or Heterosexual RHS Screen: RHS Screen Session Format: Face to Face Environmental Check Upon inquiry, the individual reports that the environment is safe to proceed. Informed Consent to Screen and Document The individual consents to proceed with screening. The individual consents to documentation of responses. PRIMARY SCREEN: In the past 12 months, how often did a current or former intimate partner (e.g., boyfriend, girlfriend, , , sexual partner): 1. Scream or curse at you Never 2. Insult or talk down to you Never 3. Threaten you with harm Never 4. Physically hurt you Never 5. Force or pressure you to have sexual contact against your will, or when you were unable to say no Never ?? The HITS tool (items 1-4 above) is [place] copyright protected by Pawan Carroll MD, and the user has full rights to use it throughout the [facility] system. PRIMARY SCREEN RESULT: The Primary Screen is NEGATIVE. The individual answered never to all forms of IPV above (i.e., answered never to all 5 items) The individual accepts education and/or resources: No EDUCATION: The individual indicated readiness to learn. Education offered during this session as noted above. The individual indicated understanding by asking relevant questions and making appropriate comments. No barriers to learning were observed or identified. PAVE Foot Check: A complete foot check was completed at this encounter. VISUAL INSPECTION: Includes inspection for skin breaks, deformity, erythema, trauma, pallor on elevation, dependent rubor, nail deformities, extensive callus and pitting edema. Visual exam results: Normal PEDAL PULSES: Includes palpation of dorsalis and posterior tibial pulses and signs/symptoms of vascular compromise like pain, pallor, parasthesia or paralysis. Present (even if diminished) SENSORY CHECK: Includes 10 gram Monofilament ([place]-Gabino) test of sensation. Intact (Greater than or equal to 80% of sites checked) Abnormal (Less than 80% of sites checked): Intact LOW-RISK: LOW RISK INFORMATION PROVIDED: 1. Advised patient not to walk barefoot. 2. Explained the importance of daily foot checks for changes. 3. Stressed the importance of daily foot hygiene, including bathing and complete drying. The patient verbalized understanding and was offered a detailed handout on diabetic foot care. /mark/ MYRA OLIVER LPN PACDaisy 10 Signed: 09/26/2023 08:42 MYRA OLIVER [place] Sep 26, 2023 05:33 AM PHYSICIAN NOTE: LOCAL TITLE: MD NOTE STANDARD TITLE: PHYSICIAN NOTE DATE OF NOTE: SEP 26, 2023@05:33 ENTRY DATE: SEP 26, 2023@05:33:40 AUTHOR: SLIM HUI EXP COSIGNER: URGENCY: STATUS: COMPLETED HISTORY OF PRESENT ILLNESS: MAGGIE SHAFFER, is a 47 yo MALE , who presents at the [facility] for his annual visit. He maintains a nonVA PCP: Dr Maza. He utilizes optometry services at the [place]. Active problems - Computerized Problem List is the source for the followin. Primary Care Physician 2. History of hypertension 3. Prolapsed lumbar intervertebral disc 4. Anxiety 5. Diabetes Mellitus Type 2 6. Glaucoma The following VA and Non-VA meds were reconciled with patient: Active Outpatient Medications (including Supplies): Issue Date Status Last Fill Active Outpatient Medications Refills Expiration ======= 1) LATANOPROST 0.005% OPH SOLN Qty: 7.5 HOLD Issu:07-18-23 for 90 days Sig: INSTILL 1 DROP INTO Refills: 3 EACH EYE AT BEDTIME TO REDUCE PRESSURE Expr:07-18-24 IN THE EYE Start Date Active Non-VA Medications Refills Expiration ======= 1) Non-VA ATORVASTATIN CALCIUM 40MG TAB ACTIVE SiMG BY MOUTH ONCE DAILY 2) Non-VA BIMATOPROST 0.01% OPH SOLN Sig: ACTIVE 1 DROP AT BEDTIME 3) Non-VA EMPAGLIFLOZIN 10MG TAB SiMG ACTIVE BY MOUTH ONCE DAILY 4) Non-VA METFORMIN HCL 1000MG TAB Sig: ACTIVE 1000MG BY MOUTH TWICE DAILY 5) Non-VA TIRZEPATIDE INJ,SOLN Si ACTIVE MG/0.5 ML SUBCUTANEOUSLY WEEKLY 6 Total Medications ALLERGIES: ========= Patient has answered NKA HISTORY: PERIOD OF SERVICE - [employer] FROM Oct TO Nov COMBAT SERVICE INDICATED: No VITAL SIGNS: Blood Pressure 148/96 (09/26/2023 08:36) Pulse 90 (09/26/2023 08:36) Respiration 18 (09/26/2023 08:36) Pulse Oximetry 98% (09/26/2023 08:36) Temperature 97.7 F [36.5 C] (09/26/2023 08:36) Pain 0 (09/26/2023 08:36) Height 68 in [172.7 cm] (09/26/2023 08:36) Weight 196.2 lb [88.99 kg] (09/26/2023 08:36) BMI BMI: 29.9 REVIEW OF SYSTEMS: CARDIOVASCULAR: No chest pain RESPIRATORY: No SOB, no wheezing GASTROINTESTINAL: No abd pain, no N/V/D GENITOURINARY: No dysuria, no hematuria MUSCULOSKELETAL: No joint pain, no joint swelling PSYCHIATRIC: No anxiety, no trouble sleeping, no depression NEUROLOGIC: No H/A, no numbness, no weakness, no tingling EXAMINATION: GENERAL: WD/WN , pleasant & in NAD HEENT: Moist mucosa NECK: Supple, no carotid bruits HEART: RRR, S1-S2, no murmurs LUNGS: CTA B/L, no wheezes ABDOMEN: Soft, NT/ND, + BS x 4 Quads PERIPH PULSES: 2+ B/L EXTREMITIES: FROM x 4, gait normal PSYCHIATRIC: Good eye contact, affect normal ASSESSMENT/PLAN: 1. DM II: on metformin 1000mg/BID, trulicity 3mg SC/weekly, and jardiance 10mg/day [facility] exam: [facility] exam: 2020 - Dr Maza - negative DPN & PVD 2. Obesity: BMI ~30, counseled on weight loss 3. Glaucoma: dxed 02/[address] Molina in [place] 4. Colonoscopy Screening: completed 04/01/23 at [facility], sigmoid diverticulosis, PGM dxed with Colon CA at age 53, repeat 5 yrs FOLLOW UP: 1 year - Annual - vet to bring PCP labs ========= UPCOMING APPOINTMENTS: 11/29/2023 08:30 CWM/NO/OPTOMETRY/[place] No barriers; Patient understands and agrees to current treatment plan. If pt has any questions, concerns, or changes in current health status he/she will call or come in to the [facility]. BMI>30/>24.99 High Risk: Patient declines to discuss weight management. Patient declined weight discussion. Discussed revisiting at a future visit. Hemoglobin A1C: Patient declines Hemoglobin A1C testing at this time. Hepatitis B Serology/Immunization: The patient declines to have HBV serology done. Reason: declines Hepatitis C Testing: Patient declines HCV lab test. HIV Screening: Patient has been offered HIV testing and has declined. I have explained that HIV testing is recommended for all adults, even if all risk factors are absent. The patient was educated on the risk of delayed screening. Lipid Screening: Patient was educated about cardiac risk factors related to cholesterol control, which includes, all elements of the Lipid Panel including HDL, LDL and Triglycerides. The [place] declined testing at this time. HTN Assess for Elevated BP>=140/90: The patient does not have a diagnosis of hypertension. The previous entry of a diagnosis of hypertension was incorrect. Medication Reconciliation: Outpatient: Medication Reconciliation was attempted at this encounter, but unable to complete: Patient/Caregiver unable to confirm all the medications the patient is taking. HTN Assess for Elevated BP>=140/90: The patient's blood pressure is usually adequately controlled. No medication changes are indicated at this time. Comment: BP 130/80 at his PCP's office 2 weerks ago /mark/ SLIM HUI MD Primary Care Physician Signed: 09/26/2023 09:10 SLIM HUI
--- OUTSIDE RECORDS SUMMARY | 2024-05-14 20:06 | XMS_ITS | Continuity of Care Document ---
Author Name [facility] Organization [facility] Care Team Providers Care Packaging Sales Name Role Phone [facility] Unavailable Unavailable Problems Combined list of problems from Department of Defense and Veterans Affairs facilities. It does not include entries that were removed or entered in error. Problem Status Onset Date Problem Type Date of Resolution Comments Source Anxiety ([facility] [id number]) Active Condition [facility] Colonoscopy Screening Active Condition Sep 26, 2023 Entered By: LAURA OLIVER Comment: 04/01/2023 [facility] [place] [place]: Digmoid deverticulosis , small internal hemorrhoids repeat 5 years. [place] Diabetes Mellitus Type 2 ([facility] [id number]) Active Condition [facility] Glaucoma Active Condition [facility] History of hypertension Active Condition Feb 05, 2020 Entered By: SLIM HUI Comment: resolved with wt loss and dietary changes [facility] Primary Care Physician Active Condition Feb 05, 2020 Entered By: SLIM HUI Comment: [facility] Herrera [facility] Prolapsed lumbar intervertebral disc Active Condition [facility] Diagnosis: ICD-10-CM H40.1111 Primary open-angle glaucoma, right eye, mild stage Active Diagnosis [facility] Diagnosis: ICD-10-CM Z46.0 Encounter for fit/adjst of spectacles and contact lenses Active Diagnosis [facility] Diagnosis: ICD-10-CM H40.1131 Primary open-angle glaucoma, bilateral, mild stage Active Diagnosis [facility] Diagnosis: ICD-10-CM E11.9 Type 2 diabetes mellitus without complications Active Diagnosis [place] Medications Combined list of outpatient medications from Department of Defense and Veterans Affairs facilities.Medications provided include 1) outpatient medications from the last 15 months, and 2) patient-reported medications. Medication Details Route Status Patient Instructions Prescription Expires Prescription Number Last Dispense Date Ordering Provider Order Date Order Qty Source ATORVASTATI N CA 40MG TAB TAKE ONE-HALF TABLET BY MOUTH ONCE DAILY ORAL ACTIVE RAFI HUI SA 2023 IELD EMPAGLIFLOZ IN 10MG TAB TAKE ONE TABLET BY MOUTH ONCE DAILY ORAL ACTIVE RAFI HUI SA 2022 IELD LATANOPROST 0.005% SOLN,OPH INSTILL 1 DROP INTO EACH EYE AT BEDTIME FOR INCREASE D PRESSURE IN THE EYE OPHTHA LMIC ACTIVE 12/30/2024 [id number] GEENA ALEXANDRA 2023 10 [facility] LATANOPROST 0.005% SOLN,OPH INSTILL 1 DROP INTO EACH EYE AT BEDTIME TO REDUCE PRESSURE IN THE EYE OPHTHA LMIC DISCONT INUED BY PROVIDE R 07/18/2024 [id number] JOSSY FONSECA AH B 2023 7.5 [facility] METFORMIN HCL 1000MG TAB TAKE ONE TABLET BY MOUTH TWICE DAILY ORAL ACTIVE RAFI HUI SA 2022 IELD TIRZEPATIDE INJ,SOLN INJECT 5 MG/0.5 ML SUBCUTAN EOUSLY WEEKLY SUBCUT ANEOUS ACTIVE RAFI HUI SA 2023 IELD Immunizations Combined list of available immunizations from the Department of Defense and Veterans Affairs facilities. Immunization Series Date Given Administered By Site Reaction Lot Number CVX Code Drug Blooming Mill Supervisor Status Comments Source PNEUMOCOCCAL POLYSACCHARID E PPV23 2020 33 complet ed [facility] INFLUENZA, UNSPECIFIED FORMULATION 2020 88 complet ed [facility] COVID-19 (MODERNA), MRNA, LNP-S, PF, 100 MCG OR 50 MCG DOSE 2 2020 207 complet ed [facility] COVID-19 (MODERNA), MRNA, LNP-S, PF, 100 MCG OR 50 MCG DOSE 1 2020 207 complet ed [facility] Influenza, injectable, quadrivalent, preservative free 1 2019 [id number] 150 Seqirus (SEQ) complet ed Influenza , injectabl e, quadrival ent, preservat sherine free [facility] INFLUENZA, UNSPECIFIED FORMULATION 2018 88 complet ed [facility] Influenza, injectable, quadrivalent, preservative free 1 2018 [id number] 150 Seqirus (SEQ) complet ed Influenza , injectabl e, quadrival ent, preservat sherine free DoD influenza, injectable, quadrivalent, contains preservative 21 2017 [id number] Seqirus (SEQ) comple t ed influenza , injectabl e, quadrival ent, contains preservat sherine DoD Influenza, injectable, Madin Елена Canine Kidney, preservative free, quadrivalent 20 2016 [id number] Seqirus (SEQ) comple t ed Influenza , injectabl e, Madin Елена Canine Kidney, preservat sherine free, quadrival ent DoD tetanus toxoid, reduced diphtheria toxoid, and acellular pertu is vaccine, adsorbed 1 2016 [id number] 115 SmithKline (SKB) complet ed tetanus toxoid, reduced diphtheri a toxoid, and acellular pertussis vaccine, adsorbed DoD TDAP 2016 115 complet ed [facility] Influenza, seasonal, injectable, preservative free 19 2015 [id number] SmithDigitalMRine (SKB) complet ed Influenza , seasonal, injectabl e, preservat sherine free DoD Influenza, seasonal, injectable 1 2014 [id number] 141 [employer] (CSL) complet ed Influenza , seasonal, injectabl e DoD hepatitis B vaccine, adult dosage 3 2014 [id number] 43 Merck (MSD) complet ed hepatitis B vaccine, adult dosage DoD Influenza, seasonal, injectable 1 2013 [id number] 141 (IDB) complet ed Influenza , seasonal, injectabl e DoD hepatitis B vaccine, adult dosage 2 2013 [id number] 43 Merck (MSD) complet ed hepatitis B vaccine, adult dosage DoD hepatitis B vaccine, adult dosage 1 [id number] [place] [address] (SKB) complet ed hepatitis B vaccine, adult dosage DoD Influenza, seasonal, injectable 16 2012 [id number] 141 [facility] Vi[employer]UAL INTERACTi[employer]ies[employer] Inc. (CSL) complet ed Influenza , seasonal, injectabl e DoD Influenza, seasonal, injectable 15 2011 [id number] 1A 141 [facility] [employer]otherap[employer] Inc[employer] (CSL) complet ed Influenza , seasonal, injectabl e DoD Influenza, seasonal, injectable 0 2010 [id number] 141 Sanofi Pasteur ([facility]) complet ed Influenza , seasonal, injectabl e DoD influenza virus vaccine, split virus (incl. purified surface antigen)-reti red CODE 1 2009 [id number] 15 Kavaliaofi Pasteur ([facility]) complet ed influenza virus vaccine, split virus (incl. purified surface antigen)- retired CODE DoD Novel influenza-H1N 1-09, injectable 1 2009 [id number] 127 [employer]. (NOV) complet ed Novel influenza -G0E1-96, injectabl e DoD influenza virus vaccine, live, attenuated, for intranasal use 1 2008 [id number] 111 [employer] (MED) complet ed influenza virus vaccine, live, attenuate d, for intranasa l use DoD influenza virus vaccine, live, attenuated, for intranasal use 1 2007 [id number] 111 [employer] (MED) complet ed influenza virus vaccine, live, attenuate d, for intranasa l use [facility] influenza virus vaccine, live, attenuated, for intranasal use 1 2006 [id number] 111 [employer] (MED) complet ed influenza virus vaccine, live, attenuate d, for intranasa l use [facility] tetanus toxoid, reduced diphtheria toxoid, and acellular pertu is vaccine, adsorbed 1 2006 [id number] 115 Sanofi Pasteur ([facility]) complet ed tetanus toxoid, reduced diphtheri a toxoid, and acellular pertussis vaccine, adsorbed DoD influenza virus vaccine, split virus (incl. purified surface antigen)-reti red CODE 1 2005 [id number] 15 Sanofi Pasteur ([facility]) complet ed influenza virus vaccine, split virus (incl. purified surface antigen)- retired CODE DoD varicella virus vaccine 0 2005 21 () complet ed varicella virus vaccine DoD influenza virus vaccine, split virus (incl. purified surface antigen)-reti red CODE 1 2004 [id number] 15 Sanofi Pasteur ([facility]) complet ed influenza virus vaccine, split virus (incl. purified surface antigen)- retired CODE DoD anthrax vaccine 6 2003 [id number] 24 [facility] [place] [facility] ([facility]) complet ed anthrax vaccine DoD anthrax vaccine 5 2003 [id number] 24 [facility] [place] [facility] ([facility]) complet ed anthrax vaccine DoD influenza virus vaccine, whole virus 0 2002 [id number] 16 [employer] ([facility]) complet ed influenza virus vaccine, whole virus DoD anthrax vaccine 4 2002 [id number] 24 [facility] [place] [facility] ([facility]) complet ed anthrax vaccine DoD typhoid Vi capsular polysaccharid e vaccine 0 2002 [id number] Sanofi Pasteur ([facility]) complet ed typhoid Vi capsular polysacch aride vaccine DoD anthrax vaccine 3 2002 [id number] 24 [facility] [place] [facility] ([facility]) complet ed anthrax vaccine DoD anthrax vaccine 2 2002 [id number] 24 [facility] ([facility]) complet ed anthrax vaccine DoD meningococcal polysaccharid e vaccine (MPSV4) 0 2002 [id number] 32 Sanofi Pasteur ([facility]) complet ed meningoco ccal polysacch aride vaccine (MPSV4) DoD vaccinia (smallpox) vaccine 0 2002 75 () Not Given vaccinia (smallpox ) vaccine DoD anthrax vaccine 1 2001 [id number] 24 [facility] ([facility]) complet ed anthrax vaccine DoD influenza virus vaccine, whole virus 0 2001 [id number] 16 Sanofi Pasteur ([facility]) complet ed influenza virus vaccine, whole virus DoD influenza virus vaccine, whole virus 0 2000 [id number] 16 Sanofi Pasteur ([facility]) complet ed influenza virus vaccine, whole virus DoD typhoid vaccine, parenteral, other than acetone-kille d, dried 0 2000 [id number] 41 Sanofi Pasteur ([facility]) complet ed typhoid vaccine, parentera l, other than acetone-k illed, dried DoD influenza virus vaccine, whole virus 0 1999 [id number] 16 Wyeth-Ayerst ([facility]) complet ed influenza virus vaccine, whole virus DoD hepatitis A vaccine, adult dosage 2 1999 [id number] Merck (MSD) complet ed hepatitis A vaccine, adult dosage DoD influenza virus vaccine, whole virus 0 [id number] 16 [employer]eth-Ayerst (WAL) complet ed influenza virus vaccine, whole virus DoD hepatitis A vaccine, adult dosage 1 1998 [id number] Merck (MSD) complet ed hepatitis A vaccine, adult dosage DoD influenza virus vaccine, whole virus 0 [id number] 16 Sanofi Pasteur ([facility]) complet ed influenza virus vaccine, whole virus DoD yellow fever vaccine 0 1997 37 () complet ed yellow fever vaccine DoD typhoid vaccine, parenteral, acetone-kille d, dried (U.S. ) 2 1997 53 () complet ed typhoid vaccine, parentera l, acetone-k illed, dried ([place].S. ) DoD influenza virus vaccine, whole virus 0 1996 16 () complet ed influenza virus vaccine, whole virus DoD measles, mumps and rubella virus vaccine 0 1996 03 () Not Given measles, mumps and rubella virus vaccine DoD meningococcal polysaccharid e vaccine (MPSV4) 0 1996 [id number] Connaumonikat (CON) complet ed meningoco ccal polysacch aride vaccine (MPSV4) DoD trivalent poliovirus vaccine, live, oral 0 1996 02 () complet ed trivalent polioviru s vaccine, live, oral DoD tetanus and diphtheria toxoids, adsorbed, preservative free, for adult use (2 Lf of tetanus toxoid and 2 Lf of diphtheria toxoid) 0 1996 09 () complet ed tetanus and diphtheri a toxoids, adsorbed, preservat sherine free, for adult use (2 Lf of tetanus toxoid and 2 Lf of diphtheri a toxoid) DoD Vital Signs Combined list of inpatient and outpatient Vital Signs from Department of Defense and Veterans Affairs, ranging from 12 months to all on record, depending upon the facility. Vital Sign Value Date Comments Source SYSTOLIC BLOOD PRESSURE 154 09/26/19 24 08:36:41 [facility] DIASTOLIC BLOOD PRESSURE 94 024 08:36:41 [facility] PULSE OXIMETRY 98 09/26/2023 08:36:41 [facility] WEIGHT 196.2 09/26/2023 08:36:41 [facility] BMI 30kg/m2 09/26/2023 08:36:41 [facility] PAIN 0 09/26/2023 08:36:41 [facility] HEIGHT 68 09/26/2023 08:36:41 [facility] TEMPERATURE 97.7 09/26/2023 08:36:41 [facility] PULSE 90 09/26/2023 08:36:41 [facility] RESPIRATION 18 09/26/2023 08:36:41 [facility] Encounters Combined list of: 1) Encounters from Department of Veterans Affairs facilities going back up to thelast 18 months. 2) Encounters from the Department of Defense facilities going back up to 280 months. Location Location Details Encounter Type Encounter Number Reason For Visit Attending Provider ADM Date DC [place] [address](AFN G 104 Med Sq-FM) OUTPATIENT [id number] Notes Entered by: Mustapha HERRERA 21 Aug 2016 1010 ------- ------- ------- ------- -- 469 BERRY INFANTE 08/21 Released with Work/[place] [address](A FNG 104 Med Sq-FM) [place] [address](AFN G 104 Med Sq-FM) OUTPATIENT [id number] Notes Entered by: EVIN TURNER 22 Feb 2017 1629 ------- ------- ------- ------- -- EVIN SABA 02/22 Released w/o Limitations [facility] [place] [address](A FNG 104 Med Sq-FM) [place] [address](AFN G 104 Med Sq-FM) OUTPATIENT [id number] Notes Entered by: HÉCTOR ROSS 22 Apr 2017 1205 ------- ------- ------- ------- -- Medicat ions review from KARLIE Guerra 04/22 Released w/o Limitations [facility] [place] [address](A FNG 104 Med Sq-FM) [place] [address](AFN G 104 Med Sq-FM) OUTPATIENT [id number] Notes Entered by: EVIN TURNER 24 Dec 2017 0650 ------- ------- ------- ------- -- EVIN SABA 12/24 Released w/o Limitations [facility] [place] [address](A FNG 104 Med Sq-FM) [place] [address](AFN G 104 Med Sq-FM) OUTPATIENT [id number] Notes Entered by: OMAR POOL 17 Jun 2018 1213 ------- ------- ------- ------- -- TIBURCIO ORTEGA 06/17 Released with Work/Duty Limitations [facility] [place] [address](A FNG 104 Med Sq-FM) [place] [address](AFN G 104 Med Sq-FM) OUTPATIENT [id number] Notes Entered by: EVIN TURNER 21 Mar 2019 1042 ------- ------- ------- ------- -- EVIN SABA 03/21 Released with Work/Duty Limitations [facility] [place] [address](A FNG 104 Med Sq-FM) [place] [address](AFN G 104 Med Sq-FM) TELE CONSULT [id number] Notes Entered by: EVIN TURNER 19 Apr 2019 0800 ------- ------- ------- ------- -- f/u VEIN TURNER 04/19 [facility] [place] [address](A FNG 104 Med Sq-FM) [place] [address](AFN G 104 Med Sq-FM) TELE CONSULT [id number] Notes Entered by: EVIN TURNER 29 Apr 2019 1411 ------- ------- ------- ------- -- records EVIN TURNER 04/29 [facility] [place] [address](A FNG 104 Med Sq-FM) [place] [address](AFN G 104 Med Sq-FM) OUTPATIENT [id number] Notes Entered by: EVIN TURNER 04 Oct 2019 0847 ------- ------- ------- ------- -- EVIN VILLASENOR 10/03 Released w/o Limitations [facility] [place] [address](A FNG 104 Med Sq-FM) [place] [address](AFN G 104 Med Sq-FM) OUTPATIENT [id number] Notes Entered by: EVIN TURNER 14 Nov 2019 1714 ------- ------- ------- ------- -- SUSANNAH/S EVIN NESS 11/13 Released w/o Limitations [facility] [place] [address](A FNG 104 Med Sq-FM) [place] [address](AFN G 104 Med Sq-FM) OUTPATIENT [id number] Notes Entered by: MAURICIO WIGGINS 01 Mar 2020 1119 ------- ------- ------- ------- -- PHAQ review MAURICIO WIGGINS 03/01 Released w/o Limitations [facility] [place] [address](A FNG 104 Med Sq-FM) [place] [address](AFN G 104 Med Sq-FM) TELE CONSULT [id number] Notes Entered by: EVIN TURNER 30 May 2020 1320 ------- ------- ------- ------- -- DM type 2 EVIN TURNER 05/30 [facility] [place] [address](A FNG 104 Med Sq-FM) [place] [address](AFN G 104 Med Sq-FM) OUTPATIENT [id number] Notes Entered by: EVIN TURNER 05 Jun 2020 0931 ------- ------- ------- ------- -- DM type 2 EVIN TURNER 06/05 Released with Work/Duty Limitations [facility] [place] [address](A FNG 104 Med Sq-FM) [facility] Outpatient Encounter [id number] 12/28 [facility] Out[facility] Encounter [id number] 01/26 [facility] Outpatient Encounter [id number] 02/07 [facility] EYE EXAM&TX ESTAB PT 1/>VST [id number] Diagnos is: ICD-10- CM H40.113 1 Primary open-an gle glaucom a, bilater al, mild stage<b r/> MERHAR,RAHEL H B 03/29 [facility] VISUAL FIELD EXAMINATIO N(S) [id number] Diagnos is: ICD-10- CM H40.113 1 Primary open-an gle glaucom a, bilater al, mild stage<b r/> MERHAR,RAHEL H B 03/29 [facility] CMPTR OPHTH IMG OPTIC NERVE [id number] Diagnos is: ICD-10- CM H40.113 1 Primary open-an gle glaucom a, bilater al, mild stage<b r/> MERHAR,RAHEL H B 03/29 [facility] Outpatient Encounter [id number] 04/01 [facility] Out[facility] Encounter [id number] 05/13 [facility] Outpatient Encounter [id number] 05/13 [facility] Outpatient Encounter [id number] 07/17 [facility] Outpatient Encounter [id number] 09/12 [facility] [place] OFF[place] O/P EST LOW 20 MIN [id number] Diagnos is: ICD-10- CM E11.9 Type 2 diabete s mellitu s without complic ations< br/> HERBERT HUI 09/25 [place] [facility] INTRM OPH EXAM EST PATIENT [id number] Diagnos is: ICD-10- CM H40.113 1 Primary open-an gle glaucom a, bilater al, mild stage<b r/> OSGEENA WHITE 12/29 [facility] FIT SPECTACLES MULTIFOCAL [id number] Diagnos is: ICD-10- CM Z46.0 Encount er for fit/adj st of spectac les and contact lenses< br/> GEENA ALEXANDRA 01/05 [facility] [place] [id number] Diagnos is: ICD-10- CM H40.111 1 Primary open-an gle glaucom a, right eye, mild stage<b r/> GEENA ALEXANDRA 02/16 [facility] FIT SPECTACLES MULTIFOCAL [id number] Diagnos is: ICD-10- CM Z46.0 Encount er for fit/adj st of spectac les and contact lenses< br/> GEENA ALEXANDRA 02/16 [facility] CMPTR OPHTH IMG OPTIC NERVE [id number] Diagnos is: ICD-10- CM H40.111 1 Primary open-an gle glaucom a, right eye, mild stage<b r/> GEENA ALEXANDRA 02/16 [facility] Social History Combined list of available smoking, tobacco, and other social history from Department of Defense and Veterans Affairs facilities. Social History Type Response Date Comment Sourc e Tobacco smoking status NHIS [facility] NEVER USED 09/26/2023 [place] History of tobacco use [facility]-TO[facility] NEVER USED 07/19/2022 [place] History of tobacco use [facility]-TO[facility]ACCO NEVER USED 03/30/2021 [facility] History of tobacco use VA-TOBACCO NEVER USED 01/03/2020 [facility] This section is an empty social history section. DoD Plan of Care List of future care activities from Department of Veterans Affairs facilities. Additional future care activities may be listed in the Assessment and Plan section. Date/Time Care Activity Care Activity Detail Facili ty 09/25/2024 AMBULATORY - MEDICINE AMBULATORY - MEDICI [place] [facility] 10/08/2024 AMBULATORY - MEDICINE AMBULATORY - MEDICI [place] [facility] 10/08/2024 AMBULATORY - MEDICINE AMBULATORY - MEDICI [place] [facility]
[2024-05-15 07:53] LABS: Estimated Average Glucose 171 mg/dL; Hemoglobin A1c % 7.6 % (<6.0); Total Hemoglobin (HGBA1C) 4141.6528 umol/L
== END 2024-05-14 16:55 | disposition home or self-care (01) ==
LOC: HO.LAB 16:54
PROVIDERS: PCP Internal Medicine; Visit Provider Internal Medicine
DX: E11.9 Type 2 diabetes mellitus without complications (principal)
CPT/HCPCS: 36415; 80053; 80061; 82043; 82570; 83036; 85025

== ENCOUNTER 2024-08-10 12:38 | Outpatient (REF) | payer BC, SELFPAY ==
--- OUTSIDE RECORDS SUMMARY | 2024-08-10 13:24 | XMS_ITS | Encounter Summary ---
Author Name [facility] [place] [facility] [place] Address [address] [place] [id number] Care Team Providers Care Bone Process Operator Name Role Phone EZ SLIM Primary Care Provider Unavailabl e Insurance Providers: [...] KARMA FAMIL Y Apr 20, [phone] [id number] MAGGIE SHAFFER PATIENT CAREMARK-F EP BCBS PRESCRIPT ION FEP CAREM ARK Apr 18, 2010 [id number] MAGGIE SHAFFER PATIENT Selected Encounter This section includes the information on record at [place] for the Encounter. Date/Time Encounter Type Encounter [...] glaucoma, bilateral, mild stage OSHINSKIE,MARSHA BERNAD [facility] Jan 02, 2024 09:31 AM SECONDARY Myopia, bilateral OSHINSKIE,MARSHA NARD [facility] [place] [facility] Jan 02, 2024 09:31 AM SECONDARY Presbyopia OSAKHILNSKIE,MARSHA BERNAD J [facility] Jan 02, 2024 09:31 AM SECONDARY Type 2 diabetes mellitus without complications OSLORAKIE,MARSHA BERNAD J [facility] Plan of Treatment: Future Appointments (+ 6 months) and Future Tests (+/- 45 days) The Plan of Treatment section includes future care activities for the patient from all [place] [facility]. This section includes future appointments and future orders which are active, pending or scheduled. Future Appointments This section includes appointments that were scheduled to occur 6 months from the date of the Encounter, up to a maximum of 20 appointments. The data comes from all [place] treatment facilities. Appointment Date/Time Appointment Type Appointme nt Facility Name Feb 17, 2024 09:00 AM [facility] Feb 17, 2024 10:00 AM [facility]UL[facility] MED[facility] Social History: Smoking Status (Most current) and Tobacco Use (All prior to encounter date) This section includes the most current, and the historical, smoking and tobacco- related health factors from the [facility] facility where the Encounter took place. Current Smoking Status This section includes the most current smoking, or tobacco-related health factor, from the [place] facility where the Encounter took place. Date/Time Current Smoking Status Comment Facil ity Mar 30, 2021 09:32 AM VA-TOBACCO NEVER USED [facility] Tobacco Use History This section includes a history of the smoking, or tobacco-related health factors, that were collected on or before the date of the Encounter. The data comes from the [place] facility where the Encounter took place. Date/Time Smoking Status/Tobacco Use Comment F acility Jan 03, 2020 12:08 PM [facility]-TOBACCO NEVER USED [facility] Encounter Notes: All associated encounter notes This [...] lumbar intervertebral dis 01/09/2020 SLIM HUI Anxiety ([facility] [id number]) F41.9 01/09/2020 SLIM HUI Diabetes Mellitus Type 2 ([facility] [address] 01/04/2020 SLIM HUI Glaucoma H40.89 02/05/2020 SLIM [...] -1.00 ds OS -1.25 ds refraction OD -1.00-0.05z232 20/20 OS -1.25 ds 20/20 +1.75 add [...] this VA (local) and dispensed from another [place] or [facility] facility (remote) as well as inpatient orders [...] list may not be complete. Please check [employer]. Allergies/ADRs (Tool #5) FACILITY ALLERGY/ADR -------- No Remote Allergy/ADR Data available for this patient [facility] [place] [facility] No Known Allergies Med. Reconciliation (Tool #1) INCLUDED IN THIS LIST: Alphabetical list of active outpatient prescriptions dispensed from this VA (local) and dispensed from another [place] or [facility] facility (remote) as well as inpatient orders (local pending and active), local clinic medications, locally documented non-VA medications, and local prescriptions that have or been discontinued in the past 90 days. Non-VA Meds Last Documented On: Jul 15, 2023 NOTE The display of VA prescriptions dispensed from another [place] or [facility] facility (remote) is limited to active outpatient prescription entries matched to National Drug File at the originating site and may not include some items such as investigational drugs, compounds, etc. NOT INCLUDED IN THIS LIST: Medications self-entered by the patient into personal health records (i.e. [employer]) are NOT included in this list. Non-VA medications documented outside this [place], remote inpatient orders (regardless of status) and [...] TO REDUCE PRESSURE IN THE EYE Rx# [id number] Last Released: Qt/Days Supply: Rx Expiration Date: [...] TERMS AND POSSIBLE PATIENT ACTIONS INPT = [place] inpatient order IV = [place] intravenous medication OUTPT = [place] outpatient prescription PHARMACY POSSIBLE PATIENT TERMS EXPLANATION ACTIONS -------- ------ ACTIVE A prescription that can be If you have refills, filled at the local [place] pharmacy. you may request a refill of this prescription from your [place] pharmacy. CLINIC A medication you received during If you have questions a visit to a [place] clinic or about this medication emergency department. contact your [place] healthcare team. DISCONTINUED A prescription your provider has Contact your VA stopped. It is no longer healthcare team if you available to be sent to you or need more of this picked up at the [place] pharmacy medication. window. A prescription which is [...] the VA. Or, it may be an [id number] (OTC), herbal, dietary supplements or sample medication. [...] out. /mark/ Geena Turk OD Fee Basis Environmental Construction Engineer Signed: 12/30/2023 09:08 GEENA TURK [place] [facility]
--- OUTSIDE RECORDS SUMMARY | 2024-08-10 13:24 | XMS_ITS | Encounter Summary ---
Author Name [facility] Organization [facility] [place] Address [address] [place] [address] Care Team Providers Care Green Plumber Name Role Phone SLIM HUI Primary Care [...] KARMA FAMIL Y Apr 20, [phone] [id number] MAGGIE SHAFFER PATIENT CAREMARK-F EP BCBS PRESCRIPT ION FEP CAREM ARK Apr 18, 2010 [id number] MAGGIE SHAFFER PATIENT Selected Encounter This section includes the information on record at [place] for the Encounter. Date/Time Encounter Type Encounter Description Reason Pro vider Source IHE Encounter Template Text not used by VA
--- OUTSIDE RECORDS SUMMARY | 2024-08-10 13:24 | XMS_ITS | Encounter Summary ---
Author Name [facility] [place] [facility] [place] Address [address] [place] [id number] Care Team Providers Care Print Project Manager Name Role Phone SLIM HUI Primary Care [...] KARMA FAMIL Y Apr 20, [phone] [id number] JEFEEDUARDA MAGGIE PATIENT CAREMARK-F EP BCBS PRESCRIPT ION FEP CAREM ARK Apr 18, 2010 [id number] MAGGIE SHAFFER PATIENT Selected Encounter This section includes the information on record at [place] for the Encounter. Date/Time Encounter Type Encounter Description Reason Provider Source Sep 26, 2023 08:30 AM OFFICE O/P EST LOW 20 MIN PRIMARY CARE/MEDICINE ICD-10-CM E11.9 Type 2 diabetes mellitus without complications SLIM HUI Encounter Template Text not used by [place] Assessments - Encounter Diagnoses This section includes [...] care activities for the patient from all [place] [facility] This section includes future appointments and future orders which are active, pending or scheduled. Future Appointments This section includes appointments that were scheduled to occur 6 months from the date of the Encounter, up to a maximum of 20 appointments. The data comes from all [place] treatment facilities. Appointment Date/Time Appointment Type Appointme nt Facility Name Dec 30, 2023 08:00 AM [facility] Feb 17, 2024 09:00 AM [facility] Feb 17, 2024 10:00 AM [facility]IC[facility] Social History: Smoking Status (Most current) and Tobacco Use (All prior to encounter date) This section includes the most current, and the historical, smoking and tobacco- related health factors from the [place] facility where the Encounter took place. Current Smoking Status This section includes the most current smoking, or tobacco-related health factor, from the [place] facility where the Encounter took place. Date/Time Current Smoking Status Comment Joy moranfausto Sep 26, 2023 08:30 AM [place]-TOBACCO NEVER USED [place] Tobacco Use History This section includes a history of the smoking, or tobacco-related health factors, that were collected on or before the date of the Encounter. The data comes from the [place] facility where the Encounter took place. Date/Time Smoking Status/Tobacco Use Comment F acility Jul 19, 2022 03:00 PM [place]-TOBACCO NEVER USED [facility] Encounter Notes: All associated encounter notes This [...] of his/her rights. Suicide Screen: C-SSRS Screening [place] Suicide Severity Rating Scale (C-SSRS) screener 1. [...] due to responses to other questions. 5. [place] numb or detached from people, activities, or your surroundings? Response not required due to responses to other questions. 6. [place] guilty or unable to stop blaming yourself [...] diminished) SENSORY CHECK: Includes 10 gram Monofilament (Lubec-Gabino) test of sensation. Intact (Greater than or [...] PACDaisy 10 Signed: 09/26/2023 08:42 MYRA OLIVER [facility] Sep 26, 2023 05:33 AM PHYSICIAN NOTE: LOCAL TITLE: MD NOTE STANDARD TITLE: PHYSICIAN NOTE DATE OF NOTE: SEP 26, 2023@05:33 ENTRY DATE: SEP 26, 2023@05:33:40 AUTHOR: SLIM HUI EXP COSIGNER: URGENCY: STATUS: COMPLETED HISTORY OF PRESENT ILLNESS: MAGGIE SHAFFER, is a 47 yo MALE , who presents at the [facility] for his annual visit. He maintains a nonVA PCP: Dr Maza. He utilizes optometry services at the [place]. Active problems - Computerized Problem List is [...] answered NKA HISTORY: PERIOD OF SERVICE - [facility] FROM Oct TO Nov COMBAT SERVICE INDICATED: [...] Glaucoma: dxed 02/[address] Molina in [place] 4. Colonoscopy Screening: completed 04/01/23 at [facility], sigmoid diverticulosis, PGM dxed with Colon CA [...] Panel including HDL, LDL and Triglycerides. The [place] declined testing at this time. HTN Assess [...]
--- OUTSIDE RECORDS SUMMARY | 2024-08-10 13:24 | XMS_ITS | Continuity of Care Document ---
Author Name [facility] Organization [facility] Care Team Providers Care Ranch Rider Name Role Phone [facility] Unavailable Unavailable Problems Combined list of problems from Department of Defense and Veterans Affairs facilities. It does not include entries that were removed or entered in error. Problem Status Onset Date Problem Type Date of Resolution Comments Source Anxiety ([facility] [id number]) Active Condition [facility] Colonoscopy Screening Active Condition Sep 26, 2023 Entered By: LAURA OLIVER Comment: 04/01/2023 [facility] [place]: Digmoid deverticulosis , small internal hemorrhoids repeat 5 years. LAS CRUCES Diabetes Mellitus Type 2 ([facility] [id number]) Active Condition [facility] Glaucoma Active Condition [facility] History of hypertension Active Condition Feb 05, 2020 Entered By: SLIM HUI Comment: resolved with wt loss and dietary changes [facility] Primary Care Physician Active Condition Feb 05, 2020 Entered By: SLIM HUI Comment: Dr Herrera [facility] Prolapsed lumbar intervertebral [...] 2 diabetes mellitus without complications Active Diagnosis [place] Medications Combined list of outpatient medications from [...] IN THE EYE OPHTHA LMIC ACTIVE 12/30/2024 [id number] GEENA ALEXANDRA 2023 10 [facility] LATANOPROST 0.005% SOLN,OPH INSTILL 1 DROP INTO EACH EYE AT BEDTIME TO REDUCE PRESSURE IN THE EYE OPHTHA LMIC DISCONT INUED BY PROVIDE R 07/18/2024 [id number] JOSSY FONSECA AH B 2023 7.5 [facility] METFORMIN HCL 1000MG [...] Site Reaction Lot Number CVX Code Drug Narrow Gauge Brakeman Status Comments Source PNEUMOCOCCAL POLYSACCHARID E [id number] 2020 33 complet ed Booster for Series, HISTORICA L INFORMATI ON - SOURCE UNSPECIFI ED, [facility] INFLUENZA, UNSPECIFIED FORMULATION 2020 88 complet ed [facility] COVID-19 (MODERNA), MRNA, LNP-S, PF, 100 MCG OR 50 MCG DOSE 2 2020 207 complet ed [facility] COVID-19 (MODERNA), MRNA, LNP-S, PF, 100 MCG OR 50 MCG DOSE 1 2020 207 complet ed [facility] Influenza, injectable, quadrivalent, preservative free 1 2019 [id number] 150 Seq[employer] (SEQ) complet ed Influenza , injectabl e, quadrival ent, preservat sherine free DoD INFLUENZA, UNSPECIFIED FORMULATION 2018 88 complet ed [facility] Influenza, injectable, quadrivalent, preservative free 1 2018 [id number] 150 Se[employer] (SEQ) complet ed Influenza , injectabl e, quadrival ent, preservat sherine free DoD influenza, injectable, quadrivalent, contains preservative 21 2017 [id number] Se[employer] (SEQ) comple t ed influenza , injectabl e, quadrival ent, contains preservat sherine DoD Influenza, injectable, Madin Alvord Canine Kidney, preservative free, quadrivalent 20 2016 [id number] Seqirus (SEQ) comple t ed Influenza , injectabl e, Madin Alvord Canine Kidney, preservat sherine free, quadrival ent DoD tetanus toxoid, reduced diphtheria toxoid, and acellular pertu is vaccine, adsorbed 1 2016 [id number] [employer]Kline (SKB) complet ed tetanus toxoid, reduced diphtheri a toxoid, and acellular pertussis vaccine, adsorbed DoD TDAP 2016 115 complet ed [facility] Influenza, seasonal, injectable, preservative free 19 2015 [id number] [facility] Influenza , seasonal, injectabl e, preservat sherine free DoD Influenza, seasonal, injectable 1 2014 [id number] 141 [employer] (CSL) complet ed Influenza , seasonal, injectabl e DoD hepatitis B vaccine, adult dosage 3 2014 [id number] 43 Merck (MSD) complet ed hepatitis B vaccine, adult dosage DoD Influenza, seasonal, injectable 1 2013 [id number] 141 (IDB) complet ed Influenza , seasonal, injectabl e DoD hepatitis B vaccine, adult dosage 2 2013 [id number] 43 Merck (MSD) complet ed hepatitis B vaccine, adult dosage DoD hepatitis B vaccine, adult dosage [id number] [place], [place] [address]ine (SKB) complet ed hepatitis B vaccine, adult dosage DoD Influenza, seasonal, injectable 16 2012 [id number] 141 [facility] [employer] (CSL) complet ed Influenza , seasonal, injectabl e DoD Influenza, seasonal, injectable 15 2011 [id number] 141 [facility] [employer] (CSL) complet ed Influenza , seasonal, injectabl e DoD Influenza, seasonal, injectable 0 2010 [id number] 141 Sanofi Pasteur ([facility]) complet ed Influenza , seasonal, injectabl e DoD influenza virus vaccine, split virus (incl. purified surface antigen)-reti red CODE 1 2009 [id number] 15 Sanofi Pasteur ([facility]) complet ed influenza virus vaccine, split virus (incl. purified surface antigen)- retired CODE DoD Novel influenza-H1N 1-09, injectable 1 2009 [id number] 127 [employer] (NOV) complet ed Novel influenza -Q6P8-64, injectabl e DoD influenza virus vaccine, live, attenuated, for intranasal use 1 2008 [id number] 111 [employer] (MED) complet ed influenza virus vaccine, live, attenuate d, for intranasa l use DoD influenza virus vaccine, live, attenuated, for intranasal use 1 2007 [id number] 111 [employer] (MED) complet ed influenza virus vaccine, live, attenuate d, for intranasa l use DoD influenza virus vaccine, live, attenuated, for intranasal use 1 2006 [id number] 111 [employer] (MED) complet ed influenza virus vaccine, live, attenuate d, for intranasa l use DoD tetanus toxoid, reduced diphtheria toxoid, and acellular pertu is vaccine, adsorbed 1 2006 [id number] 115 Sanofi Pasteur ([facility]) complet ed tetanus toxoid, reduced diphtheri a toxoid, and acellular pertussis vaccine, adsorbed DoD influenza virus vaccine, split virus (incl. purified surface antigen)-reti red CODE 1 2005 [id number] 15 Sanofi Pasteur ([facility]) complet ed influenza virus vaccine, split virus (incl. purified surface antigen)- retired CODE DoD varicella virus vaccine 0 2005 21 () complet ed varicella virus vaccine DoD influenza virus vaccine, split virus (incl. purified surface antigen)-reti red CODE 1 2004 [id number] 15 Sanofi Pasteur ([facility]) complet ed influenza virus vaccine, split virus (incl. purified surface antigen)- retired CODE DoD anthrax vaccine 6 2003 [id number] 24 [facility] ([facility]) complet ed anthrax vaccine DoD anthrax vaccine 5 2003 [id number] 24 [facility] [employer] ([facility]) complet ed anthrax vaccine DoD influenza virus vaccine, whole virus 0 2002 [id number] 16 [facility] complet ed influenza virus vaccine, whole virus DoD anthrax vaccine 4 2002 [id number] 24 [facility] ([facility]) complet ed anthrax vaccine DoD typhoid Vi capsular polysaccharid e vaccine 0 2002 [id number] Sanofi Pasteur ([facility]) complet ed typhoid Vi capsular polysacch aride vaccine DoD anthrax vaccine 3 2002 [id number] 24 [facility] ([facility]) complet ed anthrax vaccine DoD anthrax vaccine 2 2002 [id number] 24 [facility] ([facility]) complet ed anthrax vaccine DoD meningococcal polysaccharid e vaccine (MPSV4) 0 2002 [id number] 32 Sanofi Pasteur ([facility]) complet ed meningoco ccal polysacch aride vaccine (MPSV4) DoD vaccinia (smallpox) vaccine 0 2002 75 () Not Given vaccinia (smallpox ) vaccine DoD anthrax vaccine 1 2001 [id number] [facility] ([facility]) complet ed anthrax vaccine DoD influenza virus vaccine, whole virus 0 2001 [id number] 16 Sanofi Pasteur ([facility]) complet ed influenza virus vaccine, whole virus DoD influenza virus vaccine, whole virus 0 2000 [id number] 16 Sanofi Pasteur ([facility]) complet ed influenza virus vaccine, whole virus DoD typhoid vaccine, parenteral, other than acetone-kille d, dried 0 2000 [id number] 41 Sanofi Pasteur ([facility]) complet ed typhoid vaccine, parentera l, other than acetone-k illed, dried DoD influenza virus vaccine, whole virus 0 1999 [id number] 16 [employer] ([facility]) complet ed influenza virus vaccine, whole virus DoD hepatitis A vaccine, adult dosage 2 1999 [id number] 52 Merck (MSD) complet ed hepatitis A vaccine, adult dosage DoD influenza virus vaccine, whole virus 0 [id number] 16 [employer] ([facility]) complet ed influenza virus vaccine, whole virus DoD hepatitis A vaccine, adult dosage 1 1998 [id number] Merck (MSD) complet ed hepatitis A vaccine, adult dosage DoD influenza virus vaccine, whole virus 0 [id number] 16 Sanofi Pasteur ([facility]) complet ed influenza virus vaccine, whole [...] meningococcal polysaccharid e vaccine (MPSV4) 0 1996 [id number] 32 [place] (CON) complet ed meningoco ccal polysacch aride [...] SYSTOLIC BLOOD PRESSURE 154 09/26/19 24 08:36:41 [facility] DIASTOLIC BLOOD PRESSURE 94 024 08:36:41 [facility] PULSE OXIMETRY 98 09/26/2023 08:36:41 [facility] WEIGHT 196.2 09/26/2023 08:36:41 [facility] BMI 30 kg/m2 09/26/2023 08:36:41 [facility] [...] from Department of Veterans Affairs facilities going backup to the last 18 months, not all VA inpatient encounters are included; 2) Encounters from the Department of Defense facilities going backup to 280 months. Location Location Details Encounter Type Encounter Number Reason For Visit Attending Provider ADM Date DC Date Status [place] [address](AFN G 104 Med Sq-FM) OUTPATIENT [id number] Notes Entered by: Mustapha HERRERA 21 Aug 2016 1010 ------- ------- ------- ------- -- 469 BERRY INFANTE 08/21 Released [place] [address](A FNG 104 Med Sq-FM) [place] [address](AFN G 104 Med Sq-FM) OUTPATIENT [id number] Notes Entered by: EVIN TURNER 22 Feb 2017 1629 ------- ------- ------- ------- -- PHAQ EVIN TURNER 02/22 [facility]ased w/[facility] [place] [place] [address](A FNG 104 Med Sq-FM) [place] [address](AFN G 104 Med Sq-FM) OUTPATIENT [id number] Notes Entered by: HÉCTOR ROSS 22 Apr 2017 1205 ------- ------- ------- ------- -- Medicat ions review from KARLIE Guerra 04/22 Released w/o Limitations [facility] [place] [address](A FNG 104 Med Sq-FM) [place] [address](AFN G 104 Med Sq-FM) OUTPATIENT [id number] Notes Entered by: EVIN TURNER 24 Dec 2017 0650 ------- ------- ------- ------- -- PHAQ EVIN TURNER 12/24 Released w/o Limitations [facility] [place] [address](A FNG 104 Med Sq-FM) [place] [address](AFN G 104 Med Sq-FM) OUTPATIENT [id number] Notes Entered by: OMAR POOL 17 Jun 2018 1213 ------- ------- ------- ------- -- PHAQ TIBURCIO POOL 06/17 [facility] with Work/Duty Limitations [facility] [place] [address](A FNG 104 Med Sq-FM) [place] [address](AFN G 104 Med Sq-FM) OUTPATIENT [id number] Notes Entered by: EVIN TURNER 21 Mar 2019 1042 ------- ------- ------- ------- -- PHAQ YUE, EVIN NOONE 03/21 Released with Work/Duty Limitations [facility] [place] [address](A FNG 104 Med Sq-FM) [place] [address](AFN G 104 Med Sq-FM) TELE CONSULT [id number] Notes Entered by: EVIN TURNER 19 Apr 2019 0800 ------- ------- ------- ------- -- f/u EVIN TURNER 04/19 [facility] [place] [address](A FNG 104 Med Sq-FM) [place] [address](AFN G 104 Med Sq-FM) TELE CONSULT [id number] Notes Entered by: EVIN TURNER 29 Apr 2019 1411 ------- ------- ------- ------- -- records EVIN TURNER 04/29 [facility] [place] [address](A FNG 104 Med Sq-FM) [place] [address](AFN G 104 Med Sq-FM) OUTPATIENT [id number] Notes Entered by: EVIN TURNER 04 Oct 2019 0847 ------- ------- ------- ------- -- LOPEZ 1 EVIN TURNER 10/03 Released w/o Limitations [facility] [place] [address](A FNG 104 Med Sq-FM) [place] [address](AFN G 104 Med Sq-FM) OUTPATIENT [id number] Notes Entered by: EVIN TURNER 14 Nov 2019 1714 ------- ------- ------- ------- -- SUSANNAH/S EVIN NESS 11/13 Released w/o Limitations [facility] [place] [address](A FNG 104 Med Sq-FM) [place] [address](AFN G 104 Med Sq-FM) OUTPATIENT [id number] Notes Entered by: MAURICIO WIGGINS 01 Mar 2020 1119 ------- ------- ------- ------- -- PHAQ review MAURICIO WIGGINS 03/01 Released w/o Limitations [facility] [place] [address](A FNG 104 Med Sq-FM) [place] [address](AFN G 104 Med Sq-FM) TELE CONSULT [id number] Notes Entered by: EVIN TURNER 30 May 2020 1320 ------- ------- ------- ------- -- DM type 2 EVIN TURNER 05/30 [facility] [place] [address](A FNG 104 Med Sq-FM) [place] [address](AFN G 104 Med Sq-FM) OUTPATIENT [id number] Notes Entered by: EVIN TURNER 05 Jun 2020 0931 ------- ------- ------- ------- -- DM type 2 EVIN TURNER 06/05 Released with Work/Duty Limitations [facility] [place] [address](A FNG 104 Med Sq-FM) [facility] Outpatient Encounter [id number] 02/07 [facility] EYE EXAM&TX ESTAB PT 1/>VST [id number] Diagnos is: ICD-10- CM H40.113 1 Primary open-an gle glaucom a, bilater al, mild stage MERHAR,RAHEL H B 03/29 [facility] VISUAL FIELD EXAMINATIO N(S) [id number] Diagnos is: ICD-10- CM H40.113 1 Primary open-an gle glaucom a, bilater al, mild stage MERHAR,RAHEL H B 03/29 [facility] CMPTR OPHTH IMG OPTIC NERVE [id number] Diagnos is: ICD-10- CM H40.113 1 Primary open-an gle glaucom a, bilater al, mild stage MERHAR,RAHEL H B 03/29 [facility] Outpatient Encounter [id number] 04/01 [facility] Out[facility] Encounter [id number] 05/13 [facility] Encounter [id number] 05/13 [facility] Out[facility] Encounter [id number] 07/17 [facility] Outpatient Encounter [id number] 09/12 [facility] OFFICE O/P EST LOW 20 MIN [id number] Diagnos is: ICD-10- CM E11.9 Type 2 diabete s mellitu s without complic ations HERBERT HUI 09/25 [place] [facility] INTRM OPH EXAM EST PATIENT [id number] Diagnos is: ICD-10- CM H40.113 1 Primary open-an gle glaucom a, bilater al, mild stage OSHINSKIEGEENA 12/29 [facility] FIT SPECTACLES MULTIFOCAL [id number] Diagnos is: ICD-10- CM Z46.0 Encount er for fit/adj st of spectac les and contact lenses OSLORAKIGEENA Jones 01/05 [facility] [place] [id number] Diagnos is: ICD-10- CM H40.111 1 Primary open-an gle glaucom a, right eye, mild stage OSHINSKIEGEENA 02/16 [facility] FIT SPECTACLES MULTIFOCAL [id number] Diagnos is: ICD-10- CM Z46.0 Encount er for fit/adj st of spectac les and contact lenses OSGEENA WHITE 02/16 [facility] CMPTR OPHTH IMG OPTIC NERVE [id number] Diagnos is: ICD-10- CM H40.111 1 Primary open-an gle glaucom a, right eye, mild stage OSHINSKIEGEENA 02/16 [facility] Social History Combined list of available smoking, tobacco, and other social history from Department of Defense and Veterans Affairs facilities. Social History Type Response Date Comment Sourc e Tobacco smoking status [facility] VA-TOBACCO NEVER USED 09/26/2023 [place] History of tobacco use VA-TOBACCO NEVER USED 07/19/2022 [place] History of tobacco use VA-TOBACCO NEVER USED 03/30/2021 [facility] History of tobacco use [place]-TOBACCO NEVER USED 01/03/2020 [facility] This section is an empty social history section. [facility] Plan of Care List of future care activities from Department of Veterans Affairs facilities. Additional future care activities may be listed in the Assessment and Plan section. Date/Time Care Activity Care Activity Detail Facili ty 09/25/2024 AMBULATORY - MEDICINE AMBULATORY - MEDICI [facility]
[2024-08-10 13:44] LABS: Estimated Average Glucose 174 mg/dL; Hemoglobin A1C 256.7452 umol/L; Hemoglobin A1c % 7.7 % (<6.0); Total Hemoglobin (HGBA1C) 4220.7759 umol/L
== END 2024-08-10 12:39 | disposition home or self-care (01) ==
LOC: HO.LABR 12:38
PROVIDERS: PCP Internal Medicine; Visit Provider Internal Medicine
DX: E11.9 Type 2 diabetes mellitus without complications (principal)
CPT/HCPCS: 36415; 83036

== ENCOUNTER 2024-11-24 09:26 | Outpatient (REF) | payer BC, SELFPAY ==
[2024-11-24 09:41] LABS: MANUAL DIFF FLAG NO
[2024-11-24 09:48] LABS: Hematocrit 46.0 % (42.0-52.0); Hemoglobin 15.7 g/dl (14.0-18.0); Imm Gran Abs Auto 0.02 X10*3/uL (0.00-0.03); Imm Gran Pct Auto 0.3 % (0.0-0.4); Lymphocytes Absolute Auto 1.7 X10*3/uL (1.2-4.9); Mean Corpuscular HGB Conc 34.1 g/dl (31.0-36.0); Mean Corpuscular Hemoglobin 30.0 pg (27.0-33.0); Mean Corpuscular Volume 87.8 fL (80.0-98.0); NRBC Abs Auto 0.000 X10*3/uL (0.0-0.012); NRBC Pct Auto 0.0 /100WBC (0.0-0.2); Platelet Count 252 X10*3/uL (160-400); Red Blood Count 5.24 X10*6/uL (4.60-5.80); White Blood Count 6.0 X10*3/uL (4.8-10.8)
[2024-11-24 10:46] LABS: Hemoglobin A1C 191.0166 umol/L; Total Hemoglobin (HGBA1C) 4099.6071 umol/L
[2024-11-24 11:14] LABS: Alanine Aminotransferase 38 U/L (0-40); Albumin Level 4.8 g/dL (3.5-5.0); Alkaline Phosphatase 85 U/L (39-117); Anion Gap 14 (12-20); Aspartate Amino Transferase 29 U/L (5-37); Blood Urea Nitrogen 28 mg/dL (9-16); Calcium 9.9 mg/dL (8.4-10.2); Carbon Dioxide 26 mmol/L (22-29); Chloride 104 mmol/L (96-108); Cholesterol 122 mg/dL (<200); Estimated Glomerular Filt Rate > 60; HDL Cholesterol 52 mg/dL (>40); Potassium 4.3 mmol/L (3.3-5.1); Sodium 140 mmol/L (135-145); Total Protein 7.9 g/dL (6.5-8.0); Triglycerides 62 mg/dL (<150)
== END 2024-11-24 09:27 | disposition home or self-care (01) ==
LOC: HO.LABR 09:26
PROVIDERS: PCP Internal Medicine; Visit Provider Internal Medicine
DX: E11.9 Type 2 diabetes mellitus without complications (principal)
CPT/HCPCS: 36415; 80053; 80061; 83036; 85025

== ENCOUNTER 2025-03-29 14:23 | Outpatient (REF) | payer BC, SELFPAY ==
--- OUTSIDE RECORDS SUMMARY | 2025-03-29 19:39 | XMS_ITS | Data Portability ---
Author Organization [facility] Telehealth Patient Home Address [address] [place] [address] Assessment Encounter Date Assessment Date Assessment LastModified by Organization Details LastModified Time 12/13/2023 12/13/2023 [id number] [place] [address] (INCOME TAX AUDITOR) : MDM LOW MUST MEET 2 OF [...] COVERED Not available 01/30/2024 16:07:30 12/14/2023 12/14/2023 [id number] [place] [id number] (INCOME TAX AUDITOR) MDM MODERATE MUST MEET 2 OUT OF [...] THAT IS COVERED Not available 12/14/2023 15:07:38 05/18/2024 05/18/2024 [id number] [place] [address] (INCOME TAX AUDITOR) [facility] MODERATE MUST MEET 2 OUT OF 3 [...] EACH ELEMENT THAT IS COVERED Not available 05/18/2024 12:01:27 08/13/2024 08/13/2024 [id number] [place] [address] (INCOME TAX AUDITOR) [facility] MODERATE MUST MEET 2 OUT OF 3 [...] EACH ELEMENT THAT IS COVERED Not available 08/13/2024 15:53:16 12/10/2024 12/10/2024 [id number] [place] [address] (INCOME TAX AUDITOR) [facility] MODERATE MUST MEET 2 OUT OF 3 [...] EACH ELEMENT THAT IS COVERED Not available 12/10/2024 16:24:11 Plan of Treatment Reminders Order Date Submit Date Provider Last Modified By Organization Details Last Modified Time Details Appointments FOLLOW UP 15 2024 09:00A M DR HERRERA Not available Not available Not available Lab CMP, serum or plasma 2023 024 [facility], [address] [place] [address], [id number], 12/13/2023 16:09:19 CBC 2023 024 [facility], [address] [place] [address], [address], 12/13/2023 16:09:19 lipid panel, blood 2023 024 [facility], [address] [place] [address], [address], 12/13/2023 16:09:19 microalbu min, urine 2023 024 [facility], [address] [place] [address], [place], [address], 12/13/2023 16:09:19 Referral None recorded. Procedures None recorded. Surgeries None recorded. Imaging home sleep study 2023 024 [email or web address], [address] [place] [address], [address], 12/21/2023 09:01:51 Medication Orders clotrimaz ole-betam ethasone 1 %-0.05 % topical cream [address] [facility] #[id number], [address] [place] [address], [address], 12/10/2024 16:25:55 glimepiri de 4 mg tablet [address] [facility] #[id number], [address] [facility], [place], [address], 08/13/2024 15:51:03 Ozempic 1 mg/dose (4 mg/3 mL) subcutane ous pen injector [address] [facility], [address] [facility], [place] Last, [address], 05/18/2024 12:03:39 Patient TargetsNo targets recorded. Patient Instructions Encounter Date Encounter Id Patient Instructions Last Modified By Organization Details Last Modified Time 12/14/2023 [id number] sleep apnea: car e instructions Not available 12/14/2023 15:09:51 learning about type 2 diabetes Not available 12/14/2023 15:09:51 type 2 diabetes: care instructions Not available 12/14/2023 15:09:51 12/10/2024 [id number] athlete's foot: care instructions Not available 12/10/2024 16:25:53 Reason for Referral None Reported. Results Created Date Observation Date Name Description Value Unit Range Abnormal Flag Note LastModifiedBy Organization Detail LastModifiedTime 12/12/19 24 12/12/2023 HbA1c (hemo globi n A1c), blood A1C 7.1 abnormal Not Available [facility] (Medical Records) [address] [place] [address], [place], [address], 12/12/2023 11:04:10 Result Notes None recorded. Problems Name Problem SNOMED Code Status Onset Date Resolution Date Notes Provider Name and Address Organization Details Recorded Time Impaired fasting glycemia 526338968 Completed 201708/22/2019 Cornel Herrera, [address] [facility], [place], [address], [facility] 0 09:54:12 Hyperten sive disorder 83349159 Active 2017 [facility] 8 09:18:41 Anxiety 56965973 Active 2017 [facility] 8 09:18:48 Prolapse d lumbar interver tebral disc 489602153 Active 2017 [facility] 8 09:19:00 History of lumbar discecto my 15082489870 975688 Active 2017 2017 Cornel Herrera, DO [address] [place] [address], [address], [facility] 0 11:14:29 Type 2 diabetes mellitus 27868331 Completed 201709/01/2018 Cornel Herrera, DO [address] [place] [address], [address], [facility] 0 09:54:21 Type 2 diabetes mellitus 39708313 Active 2019 Cornel Herrera, DO [address] [place] [address], [address], [facility] 0 09:54:21 Glaucoma 60088632 Active 2021 Cornel Herrera, DO [address] [place] [address], [address], [facility] 2 12:11:44 Calcific coronary arterios clerosis 76909330 Active 2022 Cornel Herrera, DO [address] [place] [address], [address], [facility] 3 13:12:50 Cellulit is of lower limb 194532561 Active 2023 Cornel Herrera, DO [address] [place] [address], [address], [facility] 4 15:43:15 Cellulit is of right lower limb 84415386390 660106 Active 2023 Cornel Herrera, DO [address] [place] [address], [address], [facility] 4 15:43:27 Sleep apnea 26511397 Active 2023 Cornel Herrera DO [address] [place], [address], [facility] 4 15:02:45 Tinnate pednatty 7342476 Active 2024 Cornel Herrera DO [address] [place], [address], [facility] 5 16:24:52 Problem Notes None recorded. Procedures Surgical History Date Name Laterality Status Provider Name and Address Organization Details Recorded Time 04/01/20 23 Colonoscopy completed Cornel Herrera DO [address] [place], [address], [facility] 04/17/2023 17:21:26 Imaging Results None recorded. Procedure Notes None recorded. Medical Equipment None [...] LAYER TO ENTIRE BURN AREA BY TOPICALRO KOTZEBUE 2 TIMES PER DAY 12/10 completed Not Available Not Available Not Available metformin 500 mg tablet TAKE 1 TABLET BY MOUTH TWICE A DAY 11/01 completed Not Available Not Available Not Available atorvastati n 20 mg tablet TAKE 1 TABLET BY MOUTH EVERY DAY active Not Available Not Available No t Available prednisone 20 mg tablet Take 3 tabs [...] Not Available Not Available No t Available clotrimazol e-betametha sone 1 %-0.05 % topical cream APPLY TO THE AFFECTED AND SURROUNDI NG AREAS OF SKIN TWICE A DAY ( MORNING AND EVENING) active Not Available Not Available No t Available glimepiride 4 mg tablet TAKE 1 TABLET BY MOUTH EVERY DAY active Not Available Not Available No [...] Jardiance 10 mg tablet TAKE 1 TABLET DAILY active Not Available Not Available No t Available Trulicity 1.5 mg/0.5 mL subcutaneou s pen [...] completed Not Available Not Available Not Available Ozempic 1 mg/dose (4 mg/3 mL) subcutaneou s pen injector INJECT 1MG SUBCUTANE OUSLY EVERY WEEK active Not Available Not Available No t Available Mounjaro 7.5 mg/0.5 mL subcutaneou s pen injector INJECT 0.5 ML SUBCUTANE OUSLY WEEKLY 08/13 completed Not Available Not Available Not Available Mounjaro 5 mg/0.5 mL subcutaneou s pen injector Inject 0.5 mL every week by subcutane ous route for 90 days. 09/15 completed Not Available Not Available Not Available Vitals Date Recorded Body height Body mass index (BMI) Body weight Heart rate Oxygen saturation Systolic And Diastolic Provider Name and Address Organization Details Last Updated DateTime 5 172.72 cm 29.6 kg/m2 06823.5 1 g 115 /min 98 % 140/90 mm[Hg] [facility] 5 11:30:13 Date Recorded Body height Body mass index (BMI) Body weight Heart rate Oxygen saturation Systolic And Diastolic Provider Name and Address Organization Details Last Updated DateTime 5 172.72 cm 29.8 kg/m2 36961.1 g 98 /min 100 % 140/80 mm[Hg] Lashell Rothman [facility] 5 15:36:43 Date Recorded Body height Body mass index (BMI) Body weight Oxygen saturation Heart rate Systolic And Diastolic Provider Name and Address Organization Details Last Updated DateTime 5 172.72 cm 29.7 kg/m2 98958.2 3 g 97 % 101 /min 124/76 mm[Hg] SLIM GUSTAFSON [facility] 5 15:33:51 Social History Question Answer Notes LastModified by Organizat ion Details LastModified Time Tobacco Smoking Status Never Smoker Not Available [facility] 02/19/2020 03:36:24 What Was The Date Of Your Most Recent Tobacco Screening? 12/10/2024 [email or web address] Information not available 12/10/2024 Sex: Unknown Functional Status Question Answer Note LastModified by Organization D etails LastModified Time Do you or have you ever used any other forms of tobacco or nicotine? No [email or web address] Information not available 02/08/2023 Mental Status None recorded. Family History Nothing Reported. Medical History Condition Response Coronary Artery Disease N Gout N Other N Kidney Stones N Blood Diseases N Blood Transfusion N Breast Cancer N COPD N Depression N Lung Disease N Defects or Inherited Disease N Anxiety Disorder N Muscle, Joint, or Bone Problems N Obesity N Vision or Eye Problems N Arthritis N Polyps N Infertility N Mental Disorder N Cancer N Varicosities N Stroke N Endometriosis N Bladder or Kidney Problems N High Cholesterol N Liver Disease N Headaches N Fibromyalgia N Kidney Disease N Allergies/Hayfever N Heart Problems N Hospitalizations N Thyroid Problems N GI Problems N Eating Disorder N Skin Problems N Anemia N MRSA exposure N Constipation N Mental Illness N Diabetes N Ovarian Cancer N Seizures/Epilepsy N Tuberculosis N Congestive Heart Failure (CHF) N Eczema N Abuse/Domestic Violence N Diverticulitis N Asthma N Reflux/GERD N Hepatitis N Heart Disease N Pulmonary Embolism N Hypertension N Chicken Pox N Autism Spectrum Disorder (ASD) N Osteoporosis N Immunizations Vaccine Type Date Status Note Provider Nam e and Address Organization Details Recorded Time Influenza, split virus, quadrivalent, preservative 03/11/20 21 completed Alma Delia Macias [facility] [place] [facility] 03/27/2021 08:54:12 pneumococcal polysaccharide PPV23 03/30/20 21 completed Cornel Herrera, DO [address] [place], [address], [facility] 07/01/2021 09:36:47 influenza, unspecified formulation 03/14/20 24 completed Deborah Saunders [facility] [place] [facility] 03/19/2024 08:42:02 zoster, unspecified formulation 11/20/19 25 completed Carissa Gencarelle [facility] 11/23/2024 12:12:46 Influenza, split virus, quadrivalent, preservative 02/11/20 18 completed Alma Delia Macias [facility] 05/26/2018 14:32:55 Influenza, split virus, quadrivalent, preservative 02/18/20 19 completed [facility] 04/06/2019 10:14:23 Influenza, split virus, quadrivalent, preservative 03/17/20 20 [facility] 07/15/2020 14:39:39 COVID-19, mRNA, LNP-S, PF, 100 mcg/0.5mL dose or 50 mcg/0.25mL dose 06/17/19 21 completed Alma Delia price [facility] Internal [facility] 07/15/2020 14:39:58 COVID-19, mRNA, LNP-S, PF, 100 mcg/0.5mL dose or 50 mcg/0.25mL dose 07/15/19 21 completed Alma Delia Macias [facility] [place] [facility] 07/15/2020 14:40:05 Past Encounters Encounter ID Performer Location Encounter Start Date Encounter Closed Date Diagnosis/Indication Diagnosis SNOMED-CT Code Diagnosis ICD10 Code Diagnosis IMO Codes Diagnosis Note [id number] Cornel Herrera [facility] [address] [facility],[place] [facility] [place] [address] 11/01/2017 10:28:20 11/01/2017 11:36:29 Adult health examination 979234318 long detailed discussion re diet carbs. volume will need to check fbw and include another a1c as he will be back on metformin Active or passive immunization 500654419 Z23 Impaired f asting glycemia 049141175 R73.01 restart metformin and rechk lab inb 2 mo Hypertensive disorder 38 771716 I10 cont to take med [id number] Cornel Herrera [facility] [address] [facility], ite [facility] [place] [address] 11/29/2017 14:20:34 12/02/2017 09:28:44 Acute low back pain 624777048 M54.5 rest, out of work through , has tuesday off Lumbar radiculopathy 128 854823 M54.16 [id number] Cornel Herrera [facility] [address] [facility],[place] [address] 12/09/2017 08:53:30 12/09/2017 14:20:35 Acute low back pain 678799745 M54.5 Body mass index 30+ - obesity 198054349 Z68.39 discuss how weight loss can help with back pain Impaired f asting glycemia 756325607 R73.01 Pt has f/u with 01/13-wishe s to wait and discuss at that time [id number] Cornel Herrera [facility] [address] [facility] [address] 01/30/2018 14:20:28 01/30/2018 15:32:06 Hypertensive disorder 45657438 I10 cont to take med Impaired f asting glycemia 393012572 R73.01 now has type 2 dm and araseli need to increase metformin to bid Type 2 mark betes mellitus 50823452 E11.9 has started to increase will increase metformin to bid [id number] Cornel Herrera DO [facility] [address] [facility] [address],[place] [address] 05/26/2018 14:18:10 05/26/2018 15:05:03 Type 2 diabetes mellitus 61047621 E11.9 has started to increase will increase metformin to bid Hypertensive disorder 38 909486 I10 cont to take med Family his tory of hemochromatosis 876200081 Z83.49 will need lab [id number] Cornel Herrera [facility] [address] [facility],[place] [facility] [place] [address] 09/01/2018 09:13:34 09/01/2018 12:09:37 Hypertensive disorder 10188891 I10 cont to take med and is doing great no changes is needed Impaired f asting glycemia 544973622 R73.01 a1c is down but needs to continue to work hard and cont to lose wgt as he is and i suspect this dx will become non-issue. we had needed to increase metformin to bid but as his wgt comes down we will be able to discontinu e the metformin rechk in 2 months [id number] Cornel Herrera [facility] [address] [facility],[place] [facility] [place] [address] 11/01/2018 09:09:04 11/01/2018 13:40:38 Hypertensive disorder 40710530 I10 cont to take med and is doing great no changes is needed Impaired f asting glycemia 743005500 R73.01 a1c is up and needs to continue to work hard and cont to lose wgt as he is and i suspect this dx will become non-issue. we had needed to increase metformin to 1000mg bid but as his wgt comes down we will be able to decrease the metformin rechk in 2 months Tinea pedi s caused by Trichophyton 73962884 B35.3 [id number] Cornel Herrera [facility] [address] [facility] [address],[place] [address] 01/17/2019 13:48:50 01/17/2019 14:52:42 Hypertensive disorder 58337812 I10 cont to take med and is doing great no changes is needed Impaired f asting glycemia 571158053 R73.01 a1c is down to 7.4 and [...] the metformin rechk in 2 months Anxiety 02899578 F41.9 stable [id number] Cornel Herrera DO [facility] [address] [facility] [address],Amanda morandamien Perea [facility] [place] [address] 04/06/2019 10:08:11 04/06/2019 10:39:03 Impaired fasting glycemia 662092620 R73.01 a1c is at 8.0 and is [...] rechk in 2 months Hypertensive disorder 38 873015 I10 cont to take med and is doing great no changes is needed Anxiety 24436009 F41.9 stable [id number] Cornel Herrera DO [facility] [address] [facility] [address],[place] it[place]ien Eliazar [facility] [place] [address] 06/08/2019 09:29:42 06/08/2019 10:01:43 Impaired fasting glycemia 784351632 R73.01 a1c is at 7.0 and is [...] rechk in 2 months Hypertensive disorder 38 662327 I10 cont to take med and is doing great no changes is needed [id number] Cornel Herrera [facility] [address] [facility],[place] [address] 08/22/2019 09:32:27 08/22/2019 10:40:59 Hypertensive disorder 17871724 I10 cont to take med and is doing great no changes is needed Anxiety 23928280 F41.9 stable no issues Type 2 mark betes mellitus 34928511 E11.9 has remained stable metformin to bid has been working ok and cont with januvia a1c is 7.2 so remains stable History of lumbar discectomy 7375307315 2496485 Z98.890 back is stable and he is careful about over doing it Prolapsed lumbar intervertebral disc 030976928 M51.26 as above stable if gets bad again will need to have fusion [id number] Cornel Herrera [facility] [address] [facility],[place] [address] 12/10/2019 09:43:58 12/10/2019 11:10:04 Type 2 diabetes mellitus 86745248 E11.9 has remained stable metformin to bid has been working ok and cont with januvia a1c is 7.2 again so remains stable Hypertensive disorder 38 156230 I10 cont to take med and is doing great no changes is needed Prolapsed lumbar intervertebral disc 405572914 M51.26 seems stable and is doing well so far [id number] Cornel Herrera [facility] [address] [facility],[place] [address] 03/05/2020 10:16:34 03/05/2020 11:45:36 Active or passive immunization 910149058 Z23 Adult heal th examination 192067763 Z00.00 long detailed discussion re diet carbs. volume physically he is doing ok needs to be careful with his back disease will need to check fbw and include another a1c as he will be back on metformin will cont to monitor Type 2 mark betes mellitus 06240915 E11.9 has remained stable metformin to bid has been working ok and cont with januvia a1c is 7.6 and before that was 7.2 again so has increased a bit Hypertensive disorder 38 767199 I10 cont to take med and is doing great no changes is needed [id number] Cornel Solis Link [facility] [address] [facility],[place] [address] 07/15/2020 14:24:56 07/15/2020 16:12:30 Type 2 diabetes mellitus 62063342 E11.9 has remained stable metformin to bid has been working ok and cont with januvia a1c is 8.0 was 7.6 and before that was 7.2 again so has increased a bit Hypertensive disorder 38 252793 I10 cont to take med and is doing great no changes is needed Anxiety 80498273 F41.9 stable no issues [id number] Cornel Solis Link [facility] [address] [facility],[place] [address] 09/09/2020 14:54:27 09/09/2020 15:30:02 Type 2 diabetes mellitus 44357618 E11.9 has remained stable metformin to bid has been working ok and cont with januvia a1c is now 6.6 on trulicity! !! he was prior 8.0 was 7.6 and before that was 7.2 again so has improved dramatical ly Hypertensive disorder 38 487477 I10 cont to take med and is doing great no changes is needed Anxiety 70307033 F41.9 stable no issues and improving [id number] Cornel Solis Link [facility] [address] [facility],[place] [address] 12/26/2020 09:15:30 12/26/2020 10:47:06 Type 2 diabetes mellitus 15612767 E11.9 has remained stable metformin to bid [...] increase the trulicity to Hypertensive disorder 38 574547 I10 cont to stay off med and is doing great but we will have him keep checking at home and record and bring in next visit no changes is needed [id number] Cornel Solis Marissadarío [facility] [address] [facility],[place] [facility] [address] 03/27/2021 08:48:42 03/27/2021 09:22:34 Type 2 diabetes mellitus 68022707 E11.9 has remained stable metformin to bid [...] see him in june Hypertensive disorder 38 241660 I10 cont to stay off med and is doing great but we will have him keep checking at home and record and bring in next visit no changes is neededchol est in spring [id number] Cornel Solis DO Link [facility] Medicine [address] [facility],[place] Eliazar [facility] [address] 07/01/2021 09:21:40 07/01/2021 15:10:42 Type 2 diabetes mellitus 63290328 E11.9 has remained stable but a1c is up today we will have to restart the meforminmi croalb has also persisted he was prior 8.0 was 7.6 and before that was 7.2 again so has improved dramatical ly Anxiety 90847114 F41.9 stable no issues and improving Hypertensive disorder 38 044331 I10 cont to stay off med and is doing great but we will have him keep checking at home and record and bring in next visit no changes is neededchol est in spring [id number] Cornel DeClair Herrera [facility] [address] [facility] [address],[place] Eliazar [facility] [place] [address] 12/15/2021 11:23:13 12/15/2021 12:13:07 Type 2 diabetes mellitus 13330062 E11.9 has remained stable but a1c is pending and if still up will ahve to add 2nd metformins een by dr jean 2 wk ago and was good not 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 glaucomami croalb has also persisted he was prior 8.0 was 7.6 and before that was 7.2 again so has improved dramatical ly Hypertensive disorder 38 514423 I10 cont to stay off med and is doing great but we will have him keep checking at home and record and bring in next visit no changes is neededchol est in spring Prolapsed lumbar intervertebral disc 875793951 M51.26 seems stable and is doing well so far although has been stiff on occasion in the am otherwise no radiculopa thy Anxiety 68214464 F41.9 stable no issues and improvings tress not bad at this point [id number] Cornel Herrera DO [facility] [address] [facility] [address],[place] [facility] [place], [place] 7 06/11/2022 16:12:18 06/14/2022 09:04:18 Type 2 diabetes mellitus 01211585 E11.9 has remained stable but a1c is 10 and if still up will have to add raymondh e is still exercises 3x per week had been 9.2 he was prior 8.0 was 7.6 and before that was 7.2 again so has improved dramatical ly Hypertensive disorder 38 842172 I10 cont to stay off med and is doing great but we will have him keep checking at home and record and bring in next visit no changes is neededchol est in spring Cornel Herrera DO [facility] [address] [facility] [address],[place] [address] 10/15/2022 15:42:36 10/18/2022 08:05:26 Type 2 diabetes mellitus 67097523 E11.9 a1c now down to 7.1 was 10.8 Hypertensive disorder 38 196590 I10 cont to stay off med and is doing great but we will have him keep checking at home and record and bring in next visit no changes is neededchol est in fall Cornel Herrera [facility] [address] [facility] [address],[place] [address] 02/08/2023 15:23:03 02/08/2023 16:48:16 Type 2 diabetes mellitus 77856758 E11.9 a1c now down to 7.2 was down to 7.1 was 10.8he is taking the trulicity and doing ok overallwon dering about the trulicity changing to mounjaro Hypertensive disorder 38 [id number] I10 cont to stay off med and is doing great but we will have him keep checking at home and record and bring in next visit no changes is neededchol est in fall [id number] Cornel Herrera [facility] [address] [facility],[place] [address] 05/13/2023 15:38:19 05/13/2023 16:39:49 Type 2 diabetes mellitus [id number] E11.9 a1c now staying at 7.2 was at 7.2 was 7.1mountashi mccartney is working ok and needs to consider increasing the dose to 7.5 Hypertensive disorder 38 991985 I10 cont to stay off med and is doing great but we will have him keep checking at home and record and bring in next visit no changes is neededchol est in fall [id number] Cornel Herrera [facility] [address] [facility],[place] [address] 09/16/2023 14:48:15 09/16/2023 15:56:34 Depression screening [id number] Z13.31 negative Type 2 mark betes mellitus 56215638 E11.9 has increase we will use a higher dose 7.5 Cellulitis of right lower limb [id number] 2830368 L03.115 will use conserv care with silver sulfinjury occured after scratching an rash Hypertensive disorder 38 451207 I10 cont to stay off med and is doing great but we will have him keep checking at home and record and bring in next visit no changes is neededchol est in fall [id number] Cornel Herrera [facility] [address] [facility],[place] [address] 12/13/2023 09:19:49 01/30/2024 16:08:09 Type 2 diabetes mellitus 99021912 E11.9 has increase we will use a higher dose 7.5 Hypertensive disorder 38 376231 I10 cont to stay off med and is doing great but we will have him keep checking at home and record and bring in next visit no changes is neededchol est in fall Depression screening 171 648018 Z13.31 negative [id number] Cornel Herrera [facility] Internal Medicine [address] [facility] [place], [address] [facility] [address] 12/14/2023 11:16:33 12/14/2023 16:22:21 Sleep apnea 96063874 G47.30 waking up at night gasping for breath Hypertensive disorder 38 522060 I10 cont to stay off med and is doing great but we will have him keep checking at home and record and bring in next visit no changes is neededchol est in fall Type 2 mark betes mellitus 21588582 E11.9 has been doing well and is now down to 7.1 from 7.6 [id number] Cornel Herrera [facility] Internal [facility] [address] [facility] [address] [place], [place] [facility] [place], [place] 7 05/18/2024 11:20:25 05/18/2024 12:17:57 Type 2 diabetes mellitus 13836770 E11.9 has been doing well and is now up to 7.6 was 7.1 from 7.6we will change to ozempic for cost Hypertensive disorder 38 763404 I10 cont to stay off med and is doing great but we will have him keep checking at home and record and bring in next visit no changes is neededchol est in fall Calcific c oronary arteriosclerosis 66009540 I25.84 stable on stat but will rechk in couple years Anxiety 48445148 F41.9 stable no issues and improvings tress not bad at this point [id number] Cornel Herrera [facility] [address] [facility] [address],[place] [place] [facility] [place] [address] 08/13/2024 15:16:23 08/13/2024 16:08:26 Type 2 diabetes mellitus 67789604 E11.9 has been doing well and is now up to 7.7 was 7.6 was 7.1 from 7.6 Hypertensive disorder 38 695980 I10 cont to stay off med and is doing great but we will have him keep checking at home and record and bring in next visit no changes is neededchol est in fall Depression screening 171 247772 Z13.31 negative Calcific c oronary arteriosclerosis 53699228 I25.84 stable on stat but will rechk in couple years [id number] Cornel Herrera [facility] [address] [facility],[place] [address] 12/10/2024 15:26:08 12/11/2024 08:16:11 Depression screening 015962232 Z13.31 negative Hypertensive disorder 38 147493 I10 cont to stay off med and is doing great but we will have him keep checking at home and record and bring in next visit no changes is neededchol est in fall Type 2 mark betes mellitus 08119232 E11.9 has been doing well and is now down to 6.4!!!!!! up to 7.7 was 7.6 was 7.1 from 7.6 Tinea pedis 6734440 B35. 3 [id number] Health Concerns Section Related Observation LastModified by Organization Detai ls LastModified Time None Recorded Concern Status LastModified by Organization Details LastModified Time None Recorded Advance Directives Directive None Recorded Payers Insurance Date Sequence Insurance Name Policy Number Policy Turner Covered Member ID Turner Member ID Guarantor Name 03/29/2025 1 [facility]: [employer] [id number] Santy Joekristen [id number] Santy Trevino Notes Date Note Type Note Provider Name and Address Organization Details Recorded Time 4 text/htm l ROS as noted in the HPI MEDS- complaint, no ADRs DIET- non compliant [...] FOOT EXAM- last done: next due: Cornel Herrera DO [address] [facility], [place], [address], [facility] Internal [facility] 01/30/2024 16:08:08 4 text/htm l Care Management - DiabetesReported by PatientHPIFor self care, patient reportsseeing eye doctor yearly for dilated eye exam,checking feet regularly,normal range of home blood sugars (in the low 100s), andno side effects from medications. For associated symptoms, patient reportssymptoms are usually well controlled,no fatigue,no dizziness,no excessive sweating,no headaches,no confusion,no increased thirst,no increased appetite,no increased urination,no blurred vision,no numbness of feet, andno calluses on feet. Care Management - HypertensionReported by PatientHPIFor self care, patient reportsnot under emotional stress. For severity, patient reportssymptoms are improvinganddoes not interfere with daily activities. For associated symptoms, patient reportsno dizziness,no lightheadedness,no chest pain,no shortness of breath,no palpitations,no edema,no calf muscle cramps,no blurred vision,no confusion,no headaches, andno fatigue.ROS as noted in the HPI patient is evaluated via tele/video assessment per patient consentduring current pandemic has had episodes of waking up at night gasping for breath Cornel Solis DO Link [address] [place] [address], [address], [facility] 12/14/2023 15:11:05 5 text/htm l Care Management - DiabetesReported by Patient Care Management - HypertensionReported by PatientIFor self care, patient reportsnot under emotional stress. For severity, patient reportssymptoms are improvinganddoes not interfere with daily activities. For associated symptoms, patient reportsno dizziness,no lightheadedness,no chest pain,no shortness of breath,no palpitations,no edema,no calf muscle cramps,no blurred vision,no confusion,no headaches, andno fatigue.ROS as noted in the HPI here for rech and is doing ok overall Cornel Solis DO Link [address] [place] [address], [phone], [facility] 05/18/2024 12:09:53 5 text/htm l Care Management - Coronary Artery Disease (CAD)Reported by PatientKANE COUNTY HUM[facility] RESOURCE SSDor self care, patient reportsnot under emotional stress. For severity, patient reportssymptoms are improvinganddoes not interfere with daily activities. For associated symptoms, patient reportsno chest pain,no shortness of breath,no left arm pain,no back pain,no neck pain,no left shoulder pain,no right shoulder pain,no numbness, andno sweats. Care Management - DiabetesReported by PatientHPIFor self care, patient reportsseeing eye doctor yearly for dilated eye exam,checking feet regularly,normal range of home blood sugars (in the low 100s), andno side effects from medications. For associated symptoms, patient reportssymptoms are usually well controlled,no fatigue,no dizziness,no excessive sweating,no headaches,no confusion,no increased thirst,no increased appetite,no increased urination,no blurred vision,no numbness of feet, andno calluses on feet. Care Management - HypertensionReported by PatientHPIFor self care, patient reportsnot under emotional stress. For severity, patient reportssymptoms are improvinganddoes not interfere with daily activities. For associated symptoms, patient reportsno dizziness,no lightheadedness,no chest pain,no shortness of breath,no palpitations,no edema,no calf muscle cramps,no blurred vision,no confusion,no headaches, andno fatigue.ROS as noted in the HPI here for rechk and is doing ok [id number] is still mid upper 7's will need to adjust meds Cornel Herrera DO [address] [place] [address], [phone], [facility] 08/13/2024 15:58:51 5 text/htm l Care Management - DiabetesReported by [id number] 6.4 doing great!!!! Care Management - HypertensionReported by Patientexcellent bp and at homeROS as noted in the HPI here for bp doing well in this regard Cornel Herrera DO [address] [place], [address], [facility] 12/10/2024 16:56:43
--- OUTSIDE RECORDS SUMMARY | 2025-03-29 19:39 | XMS_ITS | Patient Health Record ---
Author Organization [facility] Address [address] [place] [address] Care Team Providers Care Assistant Mechanic Name Role Phone SLIM HUI M.D. Primary Care Provider Francis Jaramillo Unavailable [phone] Allergies No Known Allergies Reason For Referral No Information Medications Medication SIG (Take, Route, Frequency, Duration) Notes Start Date End Date Status metFORMIN HCl 1000 MG Tablet Oral; Duration: 90 Active Trulicity 3 MG/0.5ML Solution Pen-injector Subcutaneous; Duration: 28 Every Tuesday Active Jardiance 10 MG Tablet Oral; Duration: 30 Active Latanoprost 0.005 % Solution Ophthalmic; Duration: 90 Active Atorvastatin Calcium 20 MG Tablet TAKE 1 TABLET BY MOUTH EVERY DAY FOR 30 DAYS Oral; Duration: 90 Active Social History Tobacco Use: Social History Observation Description Date Details (start date - stop date) Never Smoker NA - NA Social History Drugs/Alcohol: Social Info Question Answer Notes Alcohol Screen Did you have a drink containing alcohol in the past year? No Points 0 Interpretation Negative Tobacco Use: Social Info Question Answer Notes Tobacco Use/Smoking Patient is a nonsmoker Additional Details Category Social Info Options Details Miscellaneous: Marital status: Occupation: [employer] Section Notes: No sig alcohol Problems Problem Type SNOMED Code ICD Code Onset Dates Problem Status W/U Status Risk Notes Problem Colon cancer screening (402552308) Colon cancer screening (Z12.11) Active confirmed Problem Diverticular disease of colon (401344315) Diverticulosis of large intestine without perforation or abscess without bleeding (K57.30) Active confirmed Problem Elevated liver enzymes level (007776202) Elevated liver function tests (R79.89) Active confirmed Problem Family History of Cancer of Colon (Situation) (950308485) Family history of colon cancer (Z80.0) Active confirmed Plan Of Treatment Pending Test Test Name Order Date LIVER PROFILE 12/28/2022 US abdomen complete 12/28/2022 Future Test Test Name Order Date COLONOSCOPY 12/28/2022 Insurance Providers Payer Name Payer Address Payer Phone Subscriber Number Group Number Insured Name Patient Relationship to Insured Coverage Start Date Coverage End Date [facility] [address] [place] [address] [id number] MAGGIE SHAFFER Self - patient is the insured Medical (General) History Medical History History ICD Code Diabetes mellitus Glaucoma Denies NH,CVA,Lung disease,renal disease Surgical History Surgery Date(Month/Year) Back L5 X2
== END 2025-03-29 14:24 | disposition home or self-care (01) ==
LOC: HO.LABR 14:23
PROVIDERS: PCP Internal Medicine; Visit Provider Internal Medicine
DX: E11.9 Type 2 diabetes mellitus without complications (principal)
CPT/HCPCS: 36415; 83036